=== PATIENT | female | born 1935 | race Caucasian/White ===

== ENCOUNTER → 2019-02-21 14:08 | Outpatient (CLI) | payer MEDICARE, OTHER, SELFPAY ==
--- NOTE | 2019-02-21 | DI.CT.S_ITS ---
PROCEDURE: CT HEAD/BRAIN WO CON INDICATIONS: POULTRY HANGER shunt status TECHNIQUE: Noncontrast 4.5 mm thick angled axial sections acquired from the foramen magnum to the vertex, with coronal and sagittal reformats. For radiation dose reduction, the following was used: automated exposure control, adjustment of mA and/or kV according to patient size. COMPARISON: [facility], , MRI ANGIOGRAM HEAD/NECK W/WO CONTRAST, 12/14/2004, 13:34. FINDINGS: Image quality: Excellent. CSF spaces: A right parietal approach ventriculostomy catheter is seen, with a traversing the midline and seen along the anterior aspect of the left lateral ventricle. The lateral ventricles and the 3rd ventricle are mildly prominent, yet not significantly disproportionate to the prominence of the sulci. Basal cisterns are patent. No extra-axial fluid collections. Brain: Focal volume loss is seen involving the left cerebellum. Focal low density is also seen involving the right frontal lobe anteriorly, as on series 2 image 20. No intracranial bleeds or masses. There is cerebral volume loss for age, with resultant ventricular and sulcal prominence. There are periventricular and deep white matter chronic small vessel ischemic changes. There is intracranial internal carotid artery atherosclerosis. Skull and face: Posterior craniectomy changes are seen. Calvarium and visualized facial bones appear intact, without suspicious lesions. Sinuses: Visualized sinuses and mastoids are clear. IMPRESSION: Right parietal approach ventriculostomy catheter, with the tip along the anterior aspect of the left lateral ventricle. The lateral ventricles and 3rd ventricle are prominent, yet not significantly disproportionate to the degree of sulcal prominence. Although hydrocephalus is possible, the appearance on the current study is felt unlikely to represent acute hydrocephalus. Please correlate with patient history. Posterior craniectomy change, with volume loss seen within the left cerebellum. Prior focal resection is suspected. There is focal low density seen involving the right frontal lobe anteriorly. Differential diagnosis includes a remote infarction or potentially an underlying mass. Correlation with prior outside images would be helpful. Dictated by: Hunter Laguna M.D. on 02/21/2019 at 13:58 Approved by: Hunter Laguna M.D. on 02/21/2019 at 14:05
== END ==
PROVIDERS: PCP Neurological Surgery; Visit Provider Internal Medicine
DX: R41.89 Other symptoms and signs involving cognitive functions and awareness (principal); Z98.2 Presence of cerebrospinal fluid drainage device; Z87.74 Personal history of (corrected) congenital malformations of heart and circulatory system
CPT/HCPCS: 70450

== ENCOUNTER → 2020-04-22 08:29 | Outpatient (CLI) | payer MEDICARE, OTHER, SELFPAY ==
[2020-04-22 09:25] LABS: Appearance Urine UA CLOUDY; Bilirubin Urine UA NEGATIVE (NEGATIVE); Color Urine UA YELLOW; Glucose Urine UA NEGATIVE (Negative); Ketones Urine UA NEGATIVE (NEGATIVE); Leukocyte Esterase Urine UA 3+ (NEGATIVE); Nitrite Urine UA NEGATIVE (Negative); Occult Blood Urine UA 3+ (Negative); Protein Urine UA 1+ (Negative); Urobilinogen Urine UA 0.2 E.U./dL (0.2)
[2020-04-22 09:31] LABS: Bacteria Urine Many (>30); Culture Indicated Urine Specimen Cultured; RBC Urine 10-30/HPF (0-5/HPF); Squamous Epithelial Cell Urine 0-1 /HPF (0-5/HPF); WBC Urine >100/HPF (0-5/HPF)
== END ==
PROVIDERS: PCP Internal Medicine; Referring Provider Internal Medicine; Visit Provider Internal Medicine
DX: N30.00 Acute cystitis without hematuria (principal)
CPT/HCPCS: 81001; 87077; 87086; 87186

== ENCOUNTER 2020-05-27 11:33 | Emergency (ER) | payer MEDICARE, OTHER, SELFPAY ==
[2020-05-27] VITALS (16 sets, daily range): BP systolic 134–162; BP diastolic 60–78; PULSE 60–70; RESP 11–18; TEMP 35.9; O2SAT 92–98
--- NOTE | 2020-05-27 11:45 | DI.CT.S_ITS ---
PROCEDURE: CT ABDOMEN PELVIS W CON INDICATIONS: Right lower quadrant abdominal pain TECHNIQUE: After the administration of oral and intravenous contrast, 5 mm thick sections acquired from the diaphragms to the symphysis. 5 mm thick coronal and sagittal reformats were performed. For radiation dose reduction, the following was used: automated exposure control, adjustment of mA and/or kV according to patient size. COMPARISON: None. FINDINGS: Image quality: Excellent. ABDOMEN: Lung bases: Mild bibasilar dependent change. Heart size is normal. Pacemaker. Solid organs: Liver is normal in size and enhancement. Gallbladder is unremarkable. Biliary system is non-dilated. Pancreas enhances normally. Spleen is normal in size and enhancement. No adrenal nodules. Kidneys are normal in size and enhancement, without hydronephrosis. Peritoneum and bowel: Stomach, small bowel, and colon loops are normal in caliber and wall thickness. No free fluid or air. A normal appendix is identified. There is sigmoid diverticulosis without evidence of diverticulitis. Nodes and vessels: No retroperitoneal or mesenteric adenopathy. Aorta and inferior vena cava are normal in caliber. Miscellaneous: No ventral hernias. WATER TRUCK DRIVER shunt catheter. PELVIS: Genitourinary: Mild diffuse bladder wall thickening. Miscellaneous: Small bilateral inguinal hernias containing fat. No inguinal adenopathy. Bones: No suspicious bony lesions. No vertebral body compression fractures. IMPRESSION: 1. No evidence acute appendicitis. 2. Mild diffuse bladder wall thickening. 3. Sigmoid diverticulosis without evidence of diverticulitis. Dictated by: Constantine Jeter M.D. on 05/27/2020 at 12:20 Approved by: Constantine Jeter M.D. on 05/27/2020 at 12:23
--- NOTE | 2020-05-27 11:45 | DI.RAD.S_ITS ---
PROCEDURE: XR CHEST 1V INDICATIONS: confusion TECHNIQUE: One view of the chest was acquired. COMPARISON: None. FINDINGS: Surgical changes and devices: Left pacemaker with right atrial and right ventricular leads. Right CONSTRUCTION PROJECT ADMINISTRATOR shunt coursing over the right chest. Lungs and pleura: Lungs are clear. No pleural effusions or pneumothorax. Mediastinum: Mediastinal contours appear normal. Heart size appears prominent. Bones and chest wall: No suspicious bony lesions. Overlying soft tissues appear unremarkable. IMPRESSION: No acute airspace opacity identified. Dictated by: Jose Ball M.D. on 05/27/2020 at 12:15 Approved by: Jose Ball M.D. on 05/27/2020 at 12:19
--- NOTE | 2020-05-27 11:45 | DI.CT.S_ITS ---
PROCEDURE: CT HEAD/BRAIN WO CON INDICATIONS: confusion hx avm TECHNIQUE: Noncontrast 4.5 mm thick angled axial sections acquired from the foramen magnum to the vertex, with coronal and sagittal reformats. For radiation dose reduction, the following was used: automated exposure control, adjustment of mA and/or kV according to patient size. COMPARISON: [facility], CT, CT HEAD/BRAIN WO CON, 02/21/2019, 14:15. FINDINGS: Image quality: Excellent. CSF spaces: Right posterior CLOCK MECHANIC shunt with the tip in the anterior horn of the left ventricle. Lateral ventricles are prominent as before. The 3rd and 4th ventricles are minimally prominent and are unchanged. Basal cisterns are patent. No extra-axial fluid collections. Ventricles are normal in size and shape. Brain: No midline shift. No intracranial masses or hemorrhage. Brasher-white matter interface is normal. Skull and face: Prior occipital craniotomy. Calvarium and visualized facial bones are intact, without suspicious lesions. Sinuses: Visualized sinuses and mastoids are clear. IMPRESSION: No acute intracranial abnormality. Stable mild ventriculomegaly. Right CLOCK MECHANIC shunt is unchanged in position. Dictated by: Jose Ball M.D. on 05/27/2020 at 12:44 Approved by: Jose Ball M.D. on 05/27/2020 at 12:48
[2020-05-27 11:53] LABS: Add Manual Diff / Slide Review NO; Basophils Absolute Auto 100 /uL (0-100); Basophils Percent Auto 1.2 % (0-2); Eosinophils Absolute Auto 200 /uL (0-450); Lymphocytes Absolute Auto 2000 /uL (1100-4500); Lymphocytes Percent Auto 34.8 % (25-40); Mean Corpuscular HGB Conc 34.3 % (30-36); Mean Corpuscular Hemoglobin 31.3 PG (26-34); Mean Corpuscular Volume 91.2 fL (80-100); Monocytes Absolute Auto 600 /uL (0-900); Monocytes Percent Auto 9.5 % (3-14); Neutrophils Absolute Auto 3000 /uL (1500-7000); Neutrophils Percent Auto 51.5 % (50-75); Platelet Count 233 X10^3/uL (150-400); Red Blood Cell Count 3.84 X10^6/uL (4.0-5.2); White Blood Cell Count 5.9 X10^3/uL (4.5-11.0)
--- NOTE | 2020-05-27 12:07 | PC.NURSE ---
Addendum entered by Christina Wills R.N. 05/27/20 12:15: Pt nauseated as well Original Note: Pt woke up with blurred vision and dizzy. Pt is not at baseline per . Pt LKW 1030 05/26/20. Pt is following commands
[2020-05-27 12:10] LABS: Alanine Aminotransferase 19 IU/L (<35); Albumin 3.9 g/dL (3.5-5.0); Alkaline Phosphatase 108 U/L (38-126); Aspartate Aminotransferase 27 IU/L (14-36); BUN Creatinine Ratio 26.6 (6-22); Bilirubin Total 0.6 mg/dL (0.2-1.3); Blood Urea Nitrogen 25 mg/dL (7-17); Carbon Dioxide 29 mmol/L (22-32); Chloride 101 mmol/L (98-107); Globulin 3.9 g/dL (1.7-4.1); Glucose 270 mg/dL (80-110); HEMOLYSIS 23 (0-50); Potassium 4.6 mmol/L (3.4-5.1); Sodium 137 mmol/L (137-145); Total Protein 7.8 g/dL (6.3-8.2)
[2020-05-27 12:22] LABS: Procalcitonin < 0.05 ng/mL (<0.5)
--- NOTE | 2020-05-27 12:38 | PC.NURSE ---
Pts IV infiltrated left AC. warm blankets and coban applied
[2020-05-27 12:45] LABS: Lactate (Lactic Acid) 1.7 mmol/L (0.7-2.1)
--- NOTE | 2020-05-27 12:54 | ED.NEUROSD ---
HPI - Neuro Symptoms/Deficit General Chief Complaint: Neuro Symptoms/Deficit Stated Complaint: Decreased LOC/ nausea Time Seen by Provider: 05/27/20 11:34 Source: patient Mode of arrival: EMS Limitations: altered mental status History of Present Illness HPI Narrative: Patient is an 84-year-old female with history of recurrent UTIs and cerebral AVMs presenting with decreased responsiveness. states that he went to wake her up at 9:00 a.m. this morning and she is very weak and lethargic. She had a UTI on 04/22/2020 Proteus mirabilis, which was resistant to fluoroquinolones Bactrim and Macrobid. He overall appears weak and is difficult to get history from. Most history is obtained from the Related Data Home Medications Medication Instructions Recorded Confirmed AMLODIPINE BESYLATE (#NORVASC) 5 mg PO QDAY #0 07/19/11 ASPIRIN (#ASPIRIN) 81 mg PO QDAY #0 07/19/11 [CALCIUM] #0 07/19/11 [LANTUS ] #0 07/19/11 [NOVOLOG INSULIN PUMP] #0 07/19/11 levothyroxine [Synthroid] 50 mcg PO QDAY #0 07/19/11 simvastatin 20 mg PO QDAY #0 07/19/11 Previous Rx's Medication Instructions Recorded HYDROCODONE/ACET 1 tab PO Q8H #30 12/01/11 (Hydrocodon-Acetaminophen 5-325) amoxicillin-pot clavulanate 875 mg PO BID #14 04/08/12 [Augmentin] amoxicillin-pot clavulanate 1 tab PO BID #14 tab 05/27/20 Allergies Allergy/AdvReac Type Severity Reaction Status Date / Time Sulfa (Sulfonamide Allergy Verified 05/27/20 11:44 Antibiotics) Review of Systems Review of Systems ROS Unobtainable: Unobtainable due to medical condition Patient History Medical History Acute UTI (Acute) AVM (arteriovenous malformation) (Acute) Social History Smoking Status: Unknown if ever smoked Smoking Status: Unknown if ever smoked alcohol intake frequency: holidays/special occasions only Substance Use Type: does not use Exam Initial Vital Signs Initial Vital Signs: Vital Signs Temperature 96.7 F L 05/27/20 11:40 Pulse Rate 60 05/27/20 11:40 Respiratory Rate 15 05/27/20 11:40 Blood Pressure 148/66 H 05/27/20 11:40 Pulse Oximetry 95 05/27/20 11:40 GENERAL: Alert confused elderly female open eyes to voice and in no acute distress. HEENT: Head atraumatic,EOMI, pupils reactive, face symmetric, moist mucous membranes CARDIOVASCULAR: Regular rate and rhythm without murmurs, rubs or gallops. RESPIRATORY: Breath sounds equal bilaterally, no wheezes rales or rhonchi. ABDOMEN: Soft, tender right lower side no guarding or rebound no distension normal bowel sounds EXTREMITIES: Normal range of motion, no clubbing or edema. Neurovascularly intact NEUROLOGICAL: Follows commands, chief inspector strength equal, confused, moves all extremities, unable to lift right leg says she is normally able to do so but she is able to move her toes. Left leg is also extremely weak but does move more. SKIN: Warm, dry, no laceration, no petechiae, no rashes or lesions. Scores GCS [place] coma scale eye opening: Spontaneous [place] coma scale verbal response: Sounds Jeannie coma scale motor response: Obey commands [place] coma scale total score: 12 Course Orders Ordered: ED Orders 05/27/20 11:10 Complete Blood Count AUTO DIFF Stat Comprehensive Metabolic Panel Stat Procalcitonin Stat 05/27/20 11:45 CT abdomen pelvis w con Stat CT head/brain wo con Stat XR chest 1V Stat 05/27/20 12:10 Lactate (Lactic Acid) Stat 05/27/20 12:20 Blood Culture Stat 05/27/20 13:50 Urine Culture Stat Urine Microscopic Stat Discontinued Medications Ceftriaxone Sodium/Dextrose (Rocephin) 1 gm in 50 mls @ 100 mls/hr IV NOW ONE Stop: 05/27/20 14:26 Last Infusion: 05/27/20 14:47 Dose: 0 mls/hr Documented by: Admin: 05/27/20 14:14 Dose: 100 mls/hr Documented by: HEATHER Vital Signs Vital signs: Vital Signs - 8 hr 05/27/20 11:40 05/27/20 11:42 05/27/20 11:45 Temperature 96.7 F L Pulse Rate 60 60 60 Respiratory Rate 15 16 16 Blood Pressure 148/66 H 148/66 H Pulse Oximetry 95 92 92 05/27/20 12:00 05/27/20 12:15 05/27/20 13:12 Temperature Pulse Rate 60 60 Respiratory Rate 15 14 Blood Pressure Pulse Oximetry 92 94 97 05/27/20 13:15 05/27/20 13:23 05/27/20 13:30 Temperature Pulse Rate 66 63 64 Respiratory Rate 15 16 18 Blood Pressure 145/71 H 162/78 H Pulse Oximetry 96 97 97 05/27/20 13:45 05/27/20 14:00 05/27/20 14:01 Temperature Pulse Rate 68 60 60 Respiratory Rate 18 11 L 12 Blood Pressure 134/60 Pulse Oximetry 95 95 95 05/27/20 14:15 05/27/20 14:30 05/27/20 14:45 Temperature Pulse Rate 61 67 70 Respiratory Rate 14 13 13 Blood Pressure 142/62 H Pulse Oximetry 96 98 98 05/27/20 15:00 Temperature Pulse Rate 66 Respiratory Rate 11 L Blood Pressure 146/64 H Pulse Oximetry 96 MDM - Neuro Symptoms/Deficit Lab Data Attestation: I reviewed the patient's lab results. Result diagrams: 05/27/20 11:10 05/27/20 11:10 Labs: Lab Results 05/27/20 05/27/20 05/27/20 Range/Units 11:10 11:10 11:10 WBC 5.9 (4.5-11.0) X10^3/uL RBC 3.84 L (4.0-5.2) X10^6/uL Hgb 12.0 (12.0-16.0) g/dL Hct 35.0 L (36-46) % MCV 91.2 (80-100) fL MCH 31.3 (26-34) PG MCHC 34.3 (30-36) % RDW 13.0 (11.6-14.8) % Plt Count 233 (150-400) X10^3/uL Neut % (Auto) 51.5 (50-75) % Lymph % (Auto) 34.8 (25-40) % [place] % (Auto) 9.5 (3-14) % Eos % (Auto) 3.0 (2-4) % Baso % (Auto) 1.2 (0-2) % Neut # (Auto) 3000 (3684-8679) /uL Lymph # (Auto) 2000 (1226-3500) /uL [place] # (Auto) 600 (0-900) /uL Eos # (Auto) 200 (0-450) /uL Baso # (Auto) 100 (0-100) /uL Sodium 137 (137-145) mmol/L Potassium 4.6 (3.4-5.1) mmol/L Chloride 101 (98-107) mmol/L Carbon Dioxide 29 (22-32) mmol/L BUN 25 H (7-17) mg/dL Creatinine 0.94 (0.52-1.04) mg/dL Estimated GFR 57.0 L (>60) mL/min BUN/Creatinine Ratio 26.6 H (6-22) Glucose 270 H (80-110) mg/dL Lactate (0.7-2.1) mmol/L Calcium 10.0 (8.4-10.2) mg/dL Total Bilirubin 0.6 (0.2-1.3) mg/dL AST 27 (14-36) IU/L ALT 19 (<35) IU/L Alkaline Phosphatase 108 (38-126) U/L Total Protein 7.8 (6.3-8.2) g/dL Albumin 3.9 (3.5-5.0) g/dL Globulin 3.9 (1.7-4.1) g/dL Albumin/Globulin Ratio 1.0 (1.0-2.8) Procalcitonin < 0.05 (<0.5) ng/mL Urine RBC (0-5/HPF) Urine WBC (0-5/HPF) Ur Squamous Epith Cells (0-5/HPF) Urine Bacteria (None) Ur Culture Indicated? 05/27/20 05/27/20 Range/Units 12:10 13:50 WBC (4.5-11.0) X10^3/uL RBC (4.0-5.2) X10^6/uL Hgb (12.0-16.0) g/dL Hct (36-46) % MCV (80-100) fL MCH (26-34) PG MCHC (30-36) % RDW (11.6-14.8) % Plt Count (150-400) X10^3/uL Neut % (Auto) (50-75) % Lymph % (Auto) (25-40) % [place] % (Auto) (3-14) % Eos % (Auto) (2-4) % Baso % (Auto) (0-2) % Neut # (Auto) (0669-2296) /uL Lymph # (Auto) (4848-7084) /uL Redwood # (Auto) (0-900) /uL Eos # (Auto) (0-450) /uL Baso # (Auto) (0-100) /uL Sodium (137-145) mmol/L Potassium (3.4-5.1) mmol/L Chloride (98-107) mmol/L Carbon Dioxide (22-32) mmol/L BUN (7-17) mg/dL Creatinine (0.52-1.04) mg/dL Estimated GFR (>60) mL/min BUN/Creatinine Ratio (6-22) Glucose (80-110) mg/dL Lactate 1.7 (0.7-2.1) mmol/L Calcium (8.4-10.2) mg/dL Total Bilirubin (0.2-1.3) mg/dL AST (14-36) IU/L ALT (<35) IU/L Alkaline Phosphatase (38-126) U/L Total Protein (6.3-8.2) g/dL Albumin (3.5-5.0) g/dL Globulin (1.7-4.1) g/dL Albumin/Globulin Ratio (1.0-2.8) Procalcitonin (<0.5) ng/mL Urine RBC 5-10/hpf H (0-5/HPF) Urine WBC >100/hpf H (0-5/HPF) Ur Squamous Epith Cells 0-1 /hpf (0-5/HPF) Urine Bacteria Many (>30) H (None) Ur Culture Indicated? Specimen cultured Urine Dip Bedside Urine Glucose 500 mg/dl Bedside Urine Bilirubin - Negative Bedside Urine Ketone ++ 40 Urine Specific [place] 1.015 Bedside Urine Occult Blood + Bedside Urine pH 6.0 Bedside Urine Protein +/- 15 Bedside Urine Urobilinogen - Negative Bedside Urine Nitrite + Positive Bedside Urine Leukocytes ++ [address] scan - head: Radiologist's Impression: PROCEDURE: CT HEAD/BRAIN WO CON INDICATIONS: confusion hx avm TECHNIQUE: Noncontrast 4.5 mm thick angled axial sections acquired from the foramen magnum to the vertex, with coronal and sagittal reformats. For radiation dose reduction, the following was used: automated exposure control, adjustment of mA and/or kV according to patient size. COMPARISON: [facility], CT, CT HEAD/BRAIN WO CON, 02/21/2019, 14:15. FINDINGS: Image quality: Excellent. CSF spaces: Right posterior COMPUTER SYSTEMS AUDITOR shunt with the tip in the anterior horn of the left ventricle. Lateral ventricles are prominent as before. The 3rd and 4th ventricles are minimally prominent and are unchanged. Basal cisterns are patent. No extra-axial fluid collections. Ventricles are normal in size and shape. Brain: No midline shift. No intracranial masses or hemorrhage. Brasher-white matter interface is normal. Skull and face: Prior occipital craniotomy. Calvarium and visualized facial bones are intact, without suspicious lesions. Sinuses: Visualized sinuses and mastoids are clear. IMPRESSION: No acute intracranial abnormality. Stable mild ventriculomegaly. Right COMPUTER SYSTEMS AUDITOR shunt is unchanged in position. Dictated by: Jose Ball M.D. on 05/27/2020 at 12:44 CT scan - abdomen/pelvis: Radiologist's Impression: PROCEDURE: CT ABDOMEN PELVIS W CON INDICATIONS: Right lower quadrant abdominal pain TECHNIQUE: After the administration of oral and intravenous contrast, 5 mm thick sections acquired from the diaphragms to the symphysis. 5 mm thick coronal and sagittal reformats were performed. For radiation dose reduction, the following was used: automated exposure control, adjustment of mA and/or kV according to patient size. COMPARISON: None. FINDINGS: Image quality: Excellent. ABDOMEN: Lung bases: Mild bibasilar dependent change. Heart size is normal. Pacemaker. Solid organs: Liver is normal in size and enhancement. Gallbladder is unremarkable. Biliary system is non-dilated. Pancreas enhances normally. Spleen is normal in size and enhancement. No adrenal nodules. Kidneys are normal in size and enhancement, without hydronephrosis. Peritoneum and bowel: Stomach, small bowel, and colon loops are normal in caliber and wall thickness. No free fluid or air. A normal appendix is identified. There is sigmoid diverticulosis without evidence of diverticulitis. Nodes and vessels: No retroperitoneal or mesenteric adenopathy. Aorta and inferior vena cava are normal in caliber. Miscellaneous: No ventral hernias. COMPUTER SYSTEMS AUDITOR shunt catheter. PELVIS: Genitourinary: Mild diffuse bladder wall thickening. Miscellaneous: Small bilateral inguinal hernias containing fat. No inguinal adenopathy. Bones: No suspicious bony lesions. No vertebral body compression fractures. IMPRESSION: 1. No evidence acute appendicitis. 2. Mild diffuse bladder wall thickening. 3. Sigmoid diverticulosis without evidence of diverticulitis. Dictated by: Constantine Jeter M.D. on 05/27/2020 at 12:20 Approved by: Constantine Jeter M.D. on 05/27/2020 at 12:23 Chest x-ray: Radiologist's Impression: PROCEDURE: XR CHEST 1V INDICATIONS: confusion TECHNIQUE: One view of the chest was acquired. COMPARISON: None. FINDINGS: Surgical changes and devices: Left pacemaker with right atrial and right ventricular leads. Right COMPUTER SYSTEMS AUDITOR shunt coursing over the right chest. Lungs and pleura: Lungs are clear. No pleural effusions or pneumothorax. Mediastinum: Mediastinal contours appear normal. Heart size appears prominent. Bones and chest wall: No suspicious bony lesions. Overlying soft tissues appear unremarkable. IMPRESSION: No acute airspace opacity identified. Dictated by: Jose Ball M.D. on 05/27/2020 at 12:15 Approved by: Jose Ball M.D. on 05/27/2020 at 12:19 [facility] Narrative Medical decision making narrative: Patient's mental status improves in the ED with just IV fluids. She does not appear septic. She has no leukocytosis she is afebrile procalcitonin lactic acid are within normal limits. UTI culture results reviewed from last month. She is given 1 dose of Rocephin in the ED and started on Augmentin. I believe she was on Augmentin previously based on her med rec, but cannot be certain. The patient is able to respond now she overall is feeling much better. feels comfortable taking her home. Discharge Plan Departure Patient Disposition: Home Clinical Impression: Acute UTI Discharge Date/Time: 05/27/20 15:29 Instructions: DI for Urinary Tract Infection (UTI) Activity Restrictions/Additional Instructions: *You have been diagnosed with UTI *What to do: At this time recommend antibiotic treatment your given prescription based on your previous urine *Continue to take medications as directed Augmentin 875 mg twice a day for 7 days *Follow up with your primary care provider in 2-3 days *Return to ER if you should have increased confusion, burning in urination, fever or any new, worsening or concerning symptoms Prescriptions: New amoxicillin-pot clavulanate 875-125 mg tablet 1 tab PO BID Qty: 14 RF: 0 No Action ASPIRIN (#ASPIRIN) 81 mg PO QDAY Qty: 0 RF: 0 levothyroxine [Synthroid] 50 MCG tablet 50 mcg PO QDAY Qty: 0 RF: 0 [CALCIUM] Qty: 0 RF: 0 [NOVOLOG INSULIN PUMP] Qty: 0 RF: 0 AMLODIPINE BESYLATE (#NORVASC) 5 mg PO QDAY Qty: 0 RF: 0 simvastatin 20 MG tablet 20 mg PO QDAY Qty: 0 RF: 0 [LANTUS ] Qty: 0 RF: 0 HYDROCODONE/ACET (Hydrocodon-Acetaminophen 5-325) 1 tab PO Q8H Qty: 30 RF: 0 amoxicillin-pot clavulanate [Augmentin] 875 MG/125 MG tablet 875 mg PO BID Qty: 14 RF: 0 Referrals: Joanne Angelo [Primary Care Provider] -
[2020-05-27] MEDS: CEFTRIAXONE 1 GM/50 ML FROZ.PIGGY IV (14:14)
[2020-05-27 14:15] LABS: Bacteria Urine Many (>30); Culture Indicated Urine Specimen Cultured; RBC Urine 5-10/HPF (0-5/HPF); Squamous Epithelial Cell Urine 0-1 /HPF (0-5/HPF); WBC Urine >100/HPF (0-5/HPF)
== END 2020-05-27 15:29 | disposition home or self-care (01) ==
PROVIDERS: Emergency Provider Emergency Medicine; PCP Internal Medicine
DX: N39.0 Urinary tract infection, site not specified (principal); R41.0 Disorientation, unspecified; R10.31 Right lower quadrant pain
CPT/HCPCS: 36415; 70450; 71045; 74177; 80053; 81003; 81015; 83605; 84145; 85025; 87040; 87077; 87086; 87186; 96365; 99284

== ENCOUNTER → 2020-06-09 10:06 | Outpatient (CLI) | payer MEDICARE, OTHER, SELFPAY ==
[2020-06-09 11:12] LABS: Appearance Urine UA CLEAR; Bilirubin Urine UA NEGATIVE (NEGATIVE); Color Urine UA YELLOW; Glucose Urine UA NEGATIVE (Negative); Ketones Urine UA NEGATIVE (NEGATIVE); Leukocyte Esterase Urine UA TRACE (NEGATIVE); Nitrite Urine UA NEGATIVE (Negative); Occult Blood Urine UA NEGATIVE (Negative); Protein Urine UA NEGATIVE (Negative); Urobilinogen Urine UA 0.2 E.U./dL (0.2)
[2020-06-09 12:18] LABS: Bacteria Urine Few (2-10); Culture Indicated Urine Specimen Cultured; RBC Urine 0-1/HPF (0-5/HPF); Squamous Epithelial Cell Urine 0-1 /HPF (0-5/HPF); WBC Urine 5-10/HPF (0-5/HPF)
== END ==
PROVIDERS: PCP Internal Medicine; Referring Provider Internal Medicine; Visit Provider Internal Medicine
DX: N39.0 Urinary tract infection, site not specified (principal)
CPT/HCPCS: 81001; 87077; 87086; 87186

== ENCOUNTER → 2020-08-18 09:53 | Outpatient (CLI) | payer MEDICARE, OTHER, SELFPAY | PROVIDERS: PCP Internal Medicine; Referring Provider Internal Medicine; Visit Provider Internal Medicine | DX: Z12.31 Encounter for screening mammogram for malignant neoplasm of breast (principal); Z53.20 Procedure and treatment not carried out because of patient's decision for unspecified reasons ==

== ENCOUNTER → 2021-04-05 08:43 | Outpatient (CLI) | payer MEDICARE, OTHER, SELFPAY ==
[2021-04-05 08:54] LABS: RBC Urine None Seen (0-5/HPF)
[2021-04-05 10:16] LABS: Appearance Urine UA CLOUDY; Bilirubin Urine UA NEGATIVE (NEGATIVE); Color Urine UA YELLOW; Glucose Urine UA NEGATIVE (Negative); Ketones Urine UA NEGATIVE (NEGATIVE); Leukocyte Esterase Urine UA 3+ (NEGATIVE); Nitrite Urine UA NEGATIVE (Negative); Occult Blood Urine UA 2+ (Negative); Protein Urine UA NEGATIVE (Negative); Specific Gravity Urine UA <=1.005 (1.000-1.035); Urobilinogen Urine UA 0.2 E.U./dL (0.2)
[2021-04-05 10:30] LABS: pH Urine UA 6.5 (4.5-8.0)
[2021-04-05 10:53] LABS: Squamous Epithelial Cell Urine 1-5 /HPF (0-5/HPF); WBC Urine >100/HPF (0-5/HPF)
[2021-04-05 10:54] LABS: Bacteria Urine Moderate (10-30); Culture Indicated Urine Specimen Cultured
== END ==
PROVIDERS: PCP Internal Medicine; Referring Provider Internal Medicine; Visit Provider Internal Medicine
DX: N36.0 Urethral fistula (principal)
CPT/HCPCS: 81001; 87077; 87086; 87186

== ENCOUNTER → 2021-06-15 09:53 | Outpatient (CLI) | payer MEDICARE, OTHER, SELFPAY ==
--- NOTE | 2021-06-15 | DI.RAD.S_ITS ---
PROCEDURE: XR DEXA AXIAL SKELETON INDICATIONS: Localized osteoporosis [[place]] COMPARISON: None. FINDINGS: This blank DEXA report has been sent in error by the PACS system. The correct and complete report will be forthcoming in 1-2 days. Thank you for your patience and understanding. Dictated by: Yandy Schneider MD, PhD on 06/16/2021 at 10:04 Approved by: Yandy Schneider MD, PhD on 06/16/2021 at 10:04
== END ==
PROVIDERS: PCP Internal Medicine; Referring Provider Internal Medicine; Visit Provider Internal Medicine
DX: M81.6 Localized osteoporosis [Lequesne] (principal); M81.0 Age-related osteoporosis without current pathological fracture
CPT/HCPCS: 77080

== ENCOUNTER → 2021-10-04 09:31 | Outpatient (CLI) | payer MEDICARE, OTHER, SELFPAY ==
[2021-10-04 11:41] LABS: Hemoglobin A1C% w Est Avg Glu 7.1 % (4.0-6.0)
== END ==
PROVIDERS: PCP Internal Medicine; Referring Provider Family Medicine; Visit Provider Family Medicine
DX: E10.649 Type 1 diabetes mellitus with hypoglycemia without coma (principal)
CPT/HCPCS: 36415; 83036

== ENCOUNTER → 2021-11-04 08:25 | Outpatient (CLI) | payer MEDICARE, OTHER, SELFPAY ==
[2021-11-04 10:44] LABS: Appearance Urine UA CLOUDY; Bilirubin Urine UA NEGATIVE (NEGATIVE); Color Urine UA YELLOW; Glucose Urine UA NEGATIVE (Negative); Ketones Urine UA TRACE (NEGATIVE); Leukocyte Esterase Urine UA 2+ (NEGATIVE); Nitrite Urine UA POSITIVE (Negative); Occult Blood Urine UA 3+ (Negative); Protein Urine UA TRACE (Negative); Urobilinogen Urine UA 0.2 E.U./dL (0.2)
[2021-11-04 10:45] LABS: Bacteria Urine Many (>30); Culture Indicated Urine Specimen Cultured; RBC Urine 5-10/HPF (0-5/HPF); Squamous Epithelial Cell Urine 1-5 /HPF (0-5/HPF); WBC Urine >100/HPF (0-5/HPF)
== END ==
PROVIDERS: PCP Internal Medicine; Referring Provider Internal Medicine; Visit Provider Internal Medicine
DX: N39.0 Urinary tract infection, site not specified (principal)
CPT/HCPCS: 81001; 87077; 87086; 87186

== ENCOUNTER → 2022-01-09 16:35 | Outpatient (CLI) | payer MEDICARE, OTHER, SELFPAY ==
[2022-01-09 17:17] LABS: Bacteria Urine Many (>30); Culture Indicated Urine Specimen Cultured; RBC Urine None Seen (0-5/HPF); WBC Urine 5-10/HPF (0-5/HPF)
== END ==
PROVIDERS: PCP Internal Medicine; Referring Provider Internal Medicine; Visit Provider Internal Medicine
DX: R30.0 Dysuria (principal)
CPT/HCPCS: 81015; 87077; 87086; 87186

== ENCOUNTER → 2022-05-02 10:14 | Outpatient (CLI) | payer MEDICARE, OTHER, SELFPAY ==
[2022-05-02 11:06] LABS: Appearance Urine UA CLOUDY; Bilirubin Urine UA NEGATIVE (NEGATIVE); Color Urine UA YELLOW; Glucose Urine UA NEGATIVE (Negative); Ketones Urine UA NEGATIVE (NEGATIVE); Leukocyte Esterase Urine UA 3+ (NEGATIVE); Nitrite Urine UA POSITIVE (Negative); Occult Blood Urine UA 2+ (Negative); Protein Urine UA TRACE (Negative); Specific Gravity Urine UA <=1.005 (1.000-1.035); Urobilinogen Urine UA 0.2 E.U./dL (0.2)
[2022-05-02 11:13] LABS: RBC Urine 1-5/HPF (0-5/HPF)
[2022-05-02 11:14] LABS: Amorphous Sediment Urine 1+; Bacteria Urine Many (>30); Culture Indicated Urine Specimen Cultured; WBC Urine 5-10/HPF (0-5/HPF)
== END ==
PROVIDERS: Internal Medicine; PCP Internal Medicine; Referring Provider Internal Medicine; Visit Provider Internal Medicine
DX: R30.0 Dysuria (principal)
CPT/HCPCS: 81001; 87077; 87086; 87186

== ENCOUNTER 2022-05-17 10:50 | Emergency (ER) | payer MEDICARE, OTHER, SELFPAY ==
[2022-05-17] VITALS (7 sets, daily range): BP systolic 148–189; BP diastolic 73–83; PULSE 60–80; RESP 13–20; TEMP 37; O2SAT 95–98; BMI 25.2
[2022-05-17 11:17] LABS: Add Manual Diff / Slide Review NO; Basophils Absolute Auto 100 /uL (0-100); Eosinophils Absolute Auto 200 /uL (0-450); Eosinophils Percent Auto 3.1 % (2-4); Hematocrit 37.4 % (36-46); Hemoglobin 12.9 g/dL (12.0-16.0); Lymphocytes Absolute Auto 3500 /uL (1100-4500); Lymphocytes Percent Auto 43.4 % (25-40); Mean Corpuscular HGB Conc 34.4 % (30-36); Mean Corpuscular Hemoglobin 31.3 PG (26-34); Mean Corpuscular Volume 90.8 fL (80-100); Monocytes Absolute Auto 700 /uL (0-900); Monocytes Percent Auto 9.1 % (3-14); Neutrophils Absolute Auto 3500 /uL (1500-7000); Neutrophils Percent Auto 43.4 % (50-75); Platelet Count 279 X10^3/uL (150-400); Red Blood Cell Count 4.12 X10^6/uL (4.0-5.2); Red Cell Distribution Width 13.4 % (11.6-14.8)
[2022-05-17 11:29] LABS: Prothrombin Time 11.9 SECONDS (10.1-12.7)
--- NOTE | 2022-05-17 11:30 | ED_ITS ---
HPI - Abdominal Pain General Chief Complaint: Abdominal Pain Stated Complaint: Thinks kidney stones Time Seen by Provider: 05/17/22 11:30 Source: patient Mode of arrival: Wheelchair Limitations: no limitations History of Present Illness HPI narrative: This is a 86-year-old female history of stroke in 2011 with significant balance issues and short-term memory loss which has been worsening over time, hypertension, dyslipidemia insulin-dependent diabetes for 40 years and recent Enterobacter cloacae UTI. Patient presents with complaint of abdominal pain that had sudden onset. Patient's states that they came over the ramus very and patient was doing fine at 8:00 a.m. this morning he states he goes into the grocery store as well she stays in the car and he noted she started having pain which lasted for about 2 hours that was persistent, constant lower abdominal no radiation was described. Patient's pain has since resolved. No recent fevers or chills. No nausea or vomiting recently. No chest pain or shortness of breath. Patient has been having small regular bowel movements every other day which is typical. No black or bloody stools. She was recently treated for a bladder infection with Cipro which she completed yesterday and has had some persistent dysuria and has chronic urinary incontinence. Patient did not describe any back or flank pain. Patient states her pain has resolved. She contributes minimally to the conversation majority from . She has had a prior pacemaker in place. She is on aspirin, atorvastatin, levothyroxine, insulin and sees primary care Dr. Leia Angelo through [facility]. Related Data Home Medications Medication Instructions Recorded Confirmed AMLODIPINE BESYLATE (#NORVASC) 5 mg PO QDAY ##0 07/19/11 ASPIRIN (#ASPIRIN) 81 mg PO QDAY ##0 07/19/11 [CALCIUM] ##0 07/19/11 [LANTUS ] ##0 07/19/11 [NOVOLOG INSULIN PUMP] ##0 07/19/11 levothyroxine 50 mcg tablet 50 mcg PO QDAY ##0 07/19/11 (Synthroid) simvastatin 20 mg tablet 20 mg PO QDAY ##0 07/19/11 Previous Rx's Medication Instructions Recorded HYDROCODONE/ACET 1 tab PO Q8H ##30 12/01/11 (Hydrocodon-Acetaminophen 5-325) amoxicillin 875 mg-potassium 875 mg PO BID ##14 04/08/12 clavulanate 125 mg tablet (Augmentin) amoxicillin 875 mg-potassium 1 tab PO BID #14 tabs 05/27/20 clavulanate 125 mg tablet levofloxacin 750 mg tablet 750 mg PO DAILY 7 days #7 tabs 05/17/22 Allergies Allergy/AdvReac Type Severity Reaction Status Date / Time Sulfa (Sulfonamide Allergy Verified 05/17/22 10:58 Antibiotics) Review of Systems Review of Systems ROS Unobtainable: All systems reviewed & are unremarkable except as noted in HPI and below Patient History Medical History (Updated 05/17/22 @ 12:39 by Floridalma Fenton DO) Acute UTI AVM (arteriovenous malformation) Social History Smoking Status: Unknown if ever smoked Smoking Status: Unknown if ever smoked alcohol intake frequency: holidays/special occasions only Substance Use Type: does not use Exam Narrative Exam Narrative: GENERAL: Alert and oriented x three, elderly female in mild distress HEENT: Head normocephalic, atraumatic, EOMI, pupils reactive, face symmetric, moist mucous membranes NECK: Supple, full range of motion CARDIOVASCULAR: Regular rate and rhythm without murmurs, rubs or gallops. RESPIRATORY: Breath sounds equal bilaterally, no wheezes rales or rhonchi. ABDOMEN: Soft, positive for RLQ tenderness, normoactive bowel sounds all 4 quadrants. No guarding or rebound, rigidity, no mass : No CVA tenderness EXTREMITIES: Normal range of motion, no clubbing or edema. Neurovascularly intact NEUROLOGICAL: Cranial nerves II through XII grossly intact. Moving all extremities SKIN: Warm, dry, no petechiae, no rashes or lesions. Initial Vital Signs Initial Vital Signs: Vital Signs Temperature 98.6 F 05/17/22 10:52 Pulse Rate 80 05/17/22 10:52 Respiratory Rate 17 05/17/22 10:52 Blood Pressure 189/83 H 05/17/22 10:52 Pulse Oximetry 95 05/17/22 10:52 Oxygen Delivery Method 05/17/22 10:52 Course Orders Ordered: ED Orders 05/17/22 11:05 Complete Blood Count AUTO DIFF Stat Comprehensive Metabolic Panel Stat Lipase Stat Partial Thromboplastin Time Stat Prothrombin Time INR Stat 05/17/22 11:18 EKG-12 Lead Stat 05/17/22 11:32 Urinalysis and Microscopic Stat Urine Culture Stat 05/17/22 11:54 CT abdomen pelvis w con Stat Vital Signs Vital signs: Vital Signs - 8 hr 05/17/22 11:30 05/17/22 11:30 05/17/22 12:09 Pulse Rate 70 65 Respiratory Rate 20 Blood Pressure 179/73 H Pulse Oximetry 96 96 05/17/22 12:30 05/17/22 13:00 Pulse Rate 61 60 Respiratory Rate 17 13 Blood Pressure 148/75 H Pulse Oximetry 96 98 MDM - Abdominal Pain Lab Data Result diagrams: 05/17/22 11:05 05/17/22 11:05 Labs: Lab Results 05/17/22 05/17/22 05/17/22 Range/Units 11:05 11:05 11:05 WBC 8.0 (4.5-11.0) X10^3/uL RBC 4.12 (4.0-5.2) X10^6/uL Hgb 12.9 (12.0-16.0) g/dL Hct 37.4 (36-46) % MCV 90.8 (80-100) fL MCH 31.3 (26-34) PG MCHC 34.4 (30-36) % RDW 13.4 (11.6-14.8) % Plt Count 279 (150-400) X10^3/uL Neut % (Auto) 43.4 L (50-75) % Lymph % (Auto) 43.4 H (25-40) % [place] % (Auto) 9.1 (3-14) % Eos % (Auto) 3.1 (2-4) % Baso % (Auto) 1.0 (0-2) % Neut # (Auto) 3500 (3261-5955) /uL Lymph # (Auto) 3500 (2050-2134) /uL [place] # (Auto) 700 (0-900) /uL Eos # (Auto) 200 (0-450) /uL Baso # (Auto) 100 (0-100) /uL PT 11.9 (10.1-12.7) SECONDS INR 1.0 (0.9-1.3) APTT 30 (26-36) SECONDS Sodium 138 (137-145) mmol/L Potassium 4.2 (3.4-5.1) mmol/L Chloride 103 (98-107) mmol/L Carbon Dioxide 30 (22-32) mmol/L BUN 22 H (7-17) mg/dL Creatinine 0.93 (0.52-1.04) mg/dL Estimated GFR > 60 (>60) mL/min BUN/Creatinine Ratio 23.7 H (6-22) Glucose 114 H (80-110) mg/dL Calcium 10.0 (8.4-10.2) mg/dL Total Bilirubin 0.5 (0.2-1.3) mg/dL AST 31 (14-36) IU/L ALT 23 (<35) IU/L Alkaline Phosphatase 117 (38-126) U/L Total Protein 8.7 H (6.3-8.2) g/dL Albumin 4.4 (3.5-5.0) g/dL Globulin 4.3 H (1.7-4.1) g/dL Albumin/Globulin Ratio 1.0 (1.0-2.8) Lipase 88 (23-300) U/L Urine Color Urine Appearance Urine pH (4.5-8.0) Ur Specific [place] (1.000-1.035) Urine Protein (Negative) Urine Glucose (UA) (Negative) g/dL Urine Ketones (NEGATIVE) Urine Occult Blood (Negative) Urine Nitrate (Negative) Urine Bilirubin (NEGATIVE) Urine Urobilinogen (0.2) E.U./dL Ur Leukocyte Esterase (NEGATIVE) Urine RBC (0-5/HPF) Urine WBC (0-5/HPF) Amorphous Sediment Urine Bacteria (None) Ur Culture Indicated? 05/17/22 Range/Units 11:32 WBC (4.5-11.0) X10^3/uL RBC (4.0-5.2) X10^6/uL Hgb (12.0-16.0) g/dL Hct (36-46) % MCV (80-100) fL MCH (26-34) PG MCHC (30-36) % RDW (11.6-14.8) % Plt Count (150-400) X10^3/uL Neut % (Auto) (50-75) % Lymph % (Auto) (25-40) % [place] % (Auto) (3-14) % Eos % (Auto) (2-4) % Baso % (Auto) (0-2) % Neut # (Auto) (6156-1290) /uL Lymph # (Auto) (9682-7951) /uL [place] # (Auto) (0-900) /uL Eos # (Auto) (0-450) /uL Baso # (Auto) (0-100) /uL PT (10.1-12.7) SECONDS INR (0.9-1.3) APTT (26-36) SECONDS Sodium (137-145) mmol/L Potassium (3.4-5.1) mmol/L Chloride (98-107) mmol/L Carbon Dioxide (22-32) mmol/L BUN (7-17) mg/dL Creatinine (0.52-1.04) mg/dL Estimated GFR (>60) mL/min BUN/Creatinine Ratio (6-22) Glucose (80-110) mg/dL Calcium (8.4-10.2) mg/dL Total Bilirubin (0.2-1.3) mg/dL AST (14-36) IU/L ALT (<35) IU/L Alkaline Phosphatase (38-126) U/L Total Protein (6.3-8.2) g/dL Albumin (3.5-5.0) g/dL Globulin (1.7-4.1) g/dL Albumin/Globulin Ratio (1.0-2.8) Lipase (23-300) U/L Urine Color Yellow Urine Appearance Clear Urine pH 7.0 (4.5-8.0) Ur Specific [place] 1.010 (1.000-1.035) Urine Protein Negative (Negative) Urine Glucose (UA) Negative (Negative) g/dL Urine Ketones Negative (NEGATIVE) Urine Occult Blood 3+ H (Negative) Urine Nitrate Negative (Negative) Urine Bilirubin Negative (NEGATIVE) Urine Urobilinogen 0.2 (0.2) E.U./dL Ur Leukocyte Esterase Trace H (NEGATIVE) Urine RBC 10-30/hpf H (0-5/HPF) Urine WBC 5-10/hpf H (0-5/HPF) Amorphous Sediment 1+ Urine Bacteria Moderate (10-30) H (None) Ur Culture Indicated? Specimen cultured Imaging Data CT scan - abdomen/pelvis: Radiologist's Impression: Close Abdomen/Pelvis CT (Signed) Marlyn Tineo - 05/17/22 Launch?Image [address] [address] [address] Scan Report Signed Patient: Sofia Strickland MR#: [id number] : 1935 Acct:[id number] Age/Sex: 86 / F Date of Service: 05/17/22 Loc: ED Accession Number: [id number] ?? Procedure: CT abdomen pelvis w con Ordering Provider: Floridalma Fenton D.O. PROCEDURE:? CT ABDOMEN PELVIS W CON ? INDICATIONS:? RLQ pain, ? TECHNIQUE:? After the administration of intravenous contrast, axial sections acquired from the lung bases to the pubic symphysis.? Coronal and sagittal reformats were performed.? For radiation dose reduction, the following was used:? automated exposure control, adjustment of mA and/or kV according to patient size.? ? COMPARISON:? [facility], CT, CT ABDOMEN PELVIS W CON, 05/27/2020, 13:01. ? FINDINGS:? Image quality:? Excellent.? ? Lung bases:? Mild interstitial pulmonary opacity at the bilateral lung bases, as before. Heart:? No significant findings. ? ABDOMEN: Liver:? Unremarkable.? ? Gallbladder:? Gallbladder is contracted, militating against cholecystitis.? ? Biliary ducts:? Unremarkable.? ? Pancreas:? Unremarkable.? ? Spleen:? Unremarkable.? ? Adrenal Glands:? Unremarkable.? ? Kidneys and Ureters:? Unremarkable.? ? ? Stomach and Bowel:? Small hiatal hernia.? Mild thickening of the distal esophagus.? Stomach and small bowel are within normal limits.? There is moderate fecal distention of the rectum which demonstrates mild surrounding fat stranding.? Remainder of the colon is normal in caliber.? Normal appendix. Peritoneum:? No abnormal intraperitoneal fluid.? No free air.? 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 ? Ventral Wall: ? No hernias.? Abdominal Nodes:? No retroperitoneal or mesenteric adenopathy by size criteria.? Vessels:? Aorta and inferior vena cava are normal in size.? ? PELVIS: Pelvic Organs:? Calcification within the right aspect of the uterus, consistent with a fibroid.? Bladder:? Mild thickening of the urinary bladder which demonstrates mild surrounding fat stranding. Pelvic Nodes: No enlarged lymph nodes.? Miscellaneous: No hernias are seen. ? ? ? Bones:? Unremarkable.? IMPRESSION:? 1. Proctitis. 2. Normal appendix. 3. Mild chronic interstitial lung disease. 4. Small hiatal hernia associated with thickening of the distal esophagus; initial further assessment with endoscopy is recommended to assess for neoplasm. 5. Findings suggestive of cystitis.? Recommend correlation with urinalysis results. ? ? Dictated by: Marlyn Tineo M.D. on 05/17/2022 at 12:14 ? ? Approved by: Marlyn Tineo M.D. on 05/17/2022 at 12:17?? ECG Data Attestation: I personally reviewed and interpreted this ECG as follows: Prior ECG tracings: not available for review Interpretation: Ventricularly paced rhythm with a rate of 67 OR 282, QRS of 162 and QTC of 469. No priors available. MDM Narrative Medical decision making narrative: This is an 86-year-old female with known CVA short-term memory issues who presents after 2 hours of abdominal pain which has since resolved with no other recent symptoms according to her but has had a recent bacterial infection and completed antibiotics yesterday. Patient is tender on right lower quadrant so labs, imaging were obtained as well as urine sample. No appendicitis, patient does appear to have some proctitis, cystitis like changes on CT imaging which fits with her current urine and hiatal hernia which was already aware of. Patient continues to be pain-free at this time. Discussed with and will start antibiotics. Discharge Plan Departure Patient Disposition: Home Clinical Impression: Acute proctitis, Hernia, hiatal, Cystitis Activity Restrictions/Additional Instructions: Please follow-up with your physician. Your workup today does show some proctitis or inflammation at the rectum. Your urine also shows signs of infection. Your culture from last week was reviewed and antibiotic selected based on this. Prescription for Levaquin sent to [facility] in [place]. Please take antibiotics until completely gone. Please return for fevers, persistent pain, persistent vomiting, new or worsening abdominal, back or flank pain, black or bloody stools or other new or concerning symptoms. Prescriptions: New levofloxacin 750 mg tablet 750 mg PO DAILY 7 Days Qty: 7 0RF No Action ASPIRIN (#ASPIRIN) 81 mg PO QDAY Qty: 0 levothyroxine [Synthroid] 50 MCG tablet 50 mcg PO QDAY Qty: 0 [CALCIUM] Qty: 0 [NOVOLOG INSULIN PUMP] Qty: 0 AMLODIPINE BESYLATE (#NORVASC) 5 mg PO QDAY Qty: 0 simvastatin 20 MG tablet 20 mg PO QDAY Qty: 0 [LANTUS ] Qty: 0 HYDROCODONE/ACET (Hydrocodon-Acetaminophen 5-325) 1 tab PO Q8H Qty: 30 0RF amoxicillin-pot clavulanate [Augmentin] 875 MG/125 MG tablet 875 mg PO BID Qty: 14 0RF amoxicillin-pot clavulanate 875-125 mg tablet 1 tab PO BID Qty: 14 0RF Referrals: Joanne Angelo MD [Primary Care Provider] - Visit Report Forms: Patient Portal/API
[2022-05-17 11:31] LABS: PTT Partial Thromboplastin Tim 30 SECONDS (26-36)
[2022-05-17 11:36] LABS: Alanine Aminotransferase 23 IU/L (<35); Albumin 4.4 g/dL (3.5-5.0); Alkaline Phosphatase 117 U/L (38-126); Aspartate Aminotransferase 31 IU/L (14-36); BUN Creatinine Ratio 23.7 (6-22); Bilirubin Total 0.5 mg/dL (0.2-1.3); Blood Urea Nitrogen 22 mg/dL (7-17); Carbon Dioxide 30 mmol/L (22-32); Chloride 103 mmol/L (98-107); Estimated Glomerular Filt Rate > 60 mL/min (>60); Globulin 4.3 g/dL (1.7-4.1); Glucose 114 mg/dL (80-110); HEMOLYSIS < 15 (0-50); Lipase 88 U/L (23-300); Potassium 4.2 mmol/L (3.4-5.1); Sodium 138 mmol/L (137-145); Total Protein 8.7 g/dL (6.3-8.2)
[2022-05-17 11:45] LABS: Appearance Urine UA CLEAR; Bilirubin Urine UA NEGATIVE (NEGATIVE); Color Urine UA YELLOW; Glucose Urine UA NEGATIVE (Negative); Ketones Urine UA NEGATIVE (NEGATIVE); Leukocyte Esterase Urine UA TRACE (NEGATIVE); Nitrite Urine UA NEGATIVE (Negative); Occult Blood Urine UA 3+ (Negative); Protein Urine UA NEGATIVE (Negative); Urobilinogen Urine UA 0.2 E.U./dL (0.2)
--- NOTE | 2022-05-17 11:54 | DI.CT.S_ITS ---
PROCEDURE: CT ABDOMEN PELVIS W CON INDICATIONS: RLQ pain, TECHNIQUE: After the administration of intravenous contrast, axial sections acquired from the lung bases to the pubic symphysis. Coronal and sagittal reformats were performed. For radiation dose reduction, the following was used: automated exposure control, adjustment of mA and/or kV according to patient size. COMPARISON: [facility], CT, CT ABDOMEN PELVIS W CON, 05/27/2020, 13:01. FINDINGS: Image quality: Excellent. Lung bases: Mild interstitial pulmonary opacity at the bilateral lung bases, as before. Heart: No significant findings. ABDOMEN: Liver: Unremarkable. Gallbladder: Gallbladder is contracted, militating against cholecystitis. Biliary ducts: Unremarkable. Pancreas: Unremarkable. Spleen: Unremarkable. Adrenal Glands: Unremarkable. Kidneys and Ureters: Unremarkable. Stomach and Bowel: Small hiatal hernia. Mild thickening of the distal esophagus. Stomach and small bowel are within normal limits. There is moderate fecal distention of the rectum which demonstrates mild surrounding fat stranding. Remainder of the colon is normal in caliber. Normal appendix. Peritoneum: No abnormal intraperitoneal fluid. No free air. 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 Ventral Wall: No hernias. Abdominal Nodes: No retroperitoneal or mesenteric adenopathy by size criteria. Vessels: Aorta and inferior vena cava are normal in size. PELVIS: Pelvic Organs: Calcification within the right aspect of the uterus, consistent with a fibroid. Bladder: Mild thickening of the urinary bladder which demonstrates mild surrounding fat stranding. Pelvic Nodes: No enlarged lymph nodes. Miscellaneous: No hernias are seen. Bones: Unremarkable. IMPRESSION: 1. Proctitis. 2. Normal appendix. 3. Mild chronic interstitial lung disease. 4. Small hiatal hernia associated with thickening of the distal esophagus; initial further assessment with endoscopy is recommended to assess for neoplasm. 5. Findings suggestive of cystitis. Recommend correlation with urinalysis results. Dictated by: Marlyn Tineo M.D. on 05/17/2022 at 12:14 Approved by: Marlyn Tineo M.D. on 05/17/2022 at 12:17
[2022-05-17 12:08] LABS: Amorphous Sediment Urine 1+; Bacteria Urine Moderate (10-30); Culture Indicated Urine Specimen Cultured; RBC Urine 10-30/HPF (0-5/HPF); WBC Urine 5-10/HPF (0-5/HPF)
== END 2022-05-17 13:25 | disposition home or self-care (01) ==
PROVIDERS: Emergency Provider Emergency Medicine; PCP Internal Medicine
DX: K62.89 Other specified diseases of anus and rectum (principal); K44.9 Diaphragmatic hernia without obstruction or gangrene; N30.90 Cystitis, unspecified without hematuria; R10.31 Right lower quadrant pain
CPT/HCPCS: 36415; 51701; 74177; 80053; 81001; 83690; 85025; 85610; 85730; 87086; 93005; 93010; 99284; Q9967

== ENCOUNTER → 2022-10-03 09:31 | Outpatient (CLI) | payer MEDICARE, OTHER, SELFPAY ==
[2022-10-03 10:02] LABS: Appearance Urine UA SL CLOUDY; Bilirubin Urine UA NEGATIVE (NEGATIVE); Color Urine UA LT. YELLOW; Glucose Urine UA NEGATIVE (Negative); Ketones Urine UA NEGATIVE (NEGATIVE); Leukocyte Esterase Urine UA 3+ (NEGATIVE); Nitrite Urine UA POSITIVE (Negative); Occult Blood Urine UA 1+ (Negative); Protein Urine UA NEGATIVE (Negative); Urobilinogen Urine UA 0.2 E.U./dL (0.2)
[2022-10-03 10:06] LABS: pH Urine UA 6.5 (4.5-8.0)
[2022-10-03 10:14] LABS: Bacteria Urine Many (>30); Culture Indicated Urine Specimen Cultured; RBC Urine 0-1/HPF (0-5/HPF); Squamous Epithelial Cell Urine 1-5 /HPF (0-5/HPF); WBC Urine 10-30/HPF (0-5/HPF)
[2022-10-03 11:01] LABS: Hemoglobin A1C% w Est Avg Glu 7.2 % (4.0-6.0)
== END ==
PROVIDERS: PCP Internal Medicine; Referring Provider Urology; Visit Provider Urology
DX: E10.649 Type 1 diabetes mellitus with hypoglycemia without coma (principal); E03.9 Hypothyroidism, unspecified; N39.0 Urinary tract infection, site not specified
CPT/HCPCS: 36415; 81001; 83036; 84443; 87077; 87086; 87186

== ENCOUNTER → 2023-07-20 08:34 | Outpatient (CLI) | payer MEDICARE, OTHER, SELFPAY ==
[2023-07-20 10:08] LABS: Appearance Urine UA CLEAR; Bilirubin Urine UA NEGATIVE (NEGATIVE); Color Urine UA YELLOW; Glucose Urine UA NEGATIVE (Negative); Ketones Urine UA NEGATIVE (NEGATIVE); Leukocyte Esterase Urine UA 3+ (NEGATIVE); Nitrite Urine UA POSITIVE (Negative); Occult Blood Urine UA TRACE-INTACT (Negative); Protein Urine UA NEGATIVE (Negative); Urobilinogen Urine UA 0.2 E.U./dL (0.2); pH Urine UA 7.5 (4.5-8.0)
[2023-07-20 10:36] LABS: Bacteria Urine Moderate (10-30); RBC Urine 0-1/HPF (0-5/HPF); Squamous Epithelial Cell Urine 0-1 /HPF (0-5/HPF); WBC Urine 1-5/HPF (0-5/HPF)
[2023-07-20 10:37] LABS: Amorphous Sediment Urine 1+; Culture Indicated Urine Specimen Cultured
[2023-07-20 14:17] LABS: Creatinine Urine Random 26.2 mg/dL
[2023-07-20 14:22] LABS: Microalbumi Creatinin Ratio Ur 141.2 ug/mg CR (<30); Microalbumin Urine Random 3.7 mg/dL (0-1.6)
== END ==
PROVIDERS: PCP Internal Medicine; Referring Provider Internal Medicine Endocrinology, Diabetes & Metabolism; Visit Provider Internal Medicine Endocrinology, Diabetes & Metabolism
DX: N39.0 Urinary tract infection, site not specified (principal); E10.649 Type 1 diabetes mellitus with hypoglycemia without coma
CPT/HCPCS: 81001; 82043; 82570; 87077; 87086; 87186

== ENCOUNTER → 2023-08-31 13:36 | Outpatient (CLI) | payer MEDICARE, OTHER, SELFPAY ==
[2023-08-31 14:47] LABS: Appearance Urine UA TURBID; Bilirubin Urine UA NEGATIVE (NEGATIVE); Color Urine UA YELLOW; Glucose Urine UA NEGATIVE (Negative); Ketones Urine UA NEGATIVE (NEGATIVE); Leukocyte Esterase Urine UA 3+ (NEGATIVE); Nitrite Urine UA POSITIVE (Negative); Occult Blood Urine UA TRACE-INTACT (Negative); Protein Urine UA 2+ (Negative); Specific Gravity Urine UA <=1.005 (1.000-1.035)
[2023-08-31 14:49] LABS: pH Urine UA >= 9.0 (4.5-8.0)
[2023-08-31 14:58] LABS: Bacteria Urine Many (>30); RBC Urine 0-1/HPF (0-5/HPF); Squamous Epithelial Cell Urine 0-1 /HPF (0-5/HPF); Triple Phosphate Crystal Urine Moderate; WBC Urine 1-5/HPF (0-5/HPF)
[2023-08-31 14:59] LABS: Culture Indicated Urine Specimen Cultured
== END ==
PROVIDERS: Nurse Practitioner Adult Health; PCP Internal Medicine; Referring Provider Internal Medicine; Visit Provider Internal Medicine
DX: R39.9 Unspecified symptoms and signs involving the genitourinary system (principal)
CPT/HCPCS: 81001; 87077; 87086; 87186

== ENCOUNTER → 2024-06-10 10:04 | Outpatient (CLI) | payer MEDICARE, OTHER, SELFPAY ==
[2024-06-10 10:49] LABS: Appearance Urine UA CLEAR; Bilirubin Urine UA NEGATIVE (NEGATIVE); Color Urine UA YELLOW; Glucose Urine UA NEGATIVE (Negative); Ketones Urine UA NEGATIVE (NEGATIVE); Leukocyte Esterase Urine UA 3+ (NEGATIVE); Nitrite Urine UA POSITIVE (Negative); Occult Blood Urine UA TRACE-INTACT (Negative); Protein Urine UA NEGATIVE (Negative); Specific Gravity Urine UA <=1.005 (1.000-1.035); Urobilinogen Urine UA 0.2 E.U./dL (0.2)
[2024-06-10 11:05] LABS: Bacteria Urine Many (>30); Culture Indicated Urine Specimen Cultured; RBC Urine None Seen (0-5/HPF); Squamous Epithelial Cell Urine None Seen (0-5/HPF); Urine Volume 10mL (spun); WBC Urine 1-5/HPF (0-5/HPF)
== END ==
LOC: LAB 10:05
PROVIDERS: PCP Internal Medicine; Referring Provider Internal Medicine Endocrinology, Diabetes & Metabolism; Visit Provider Internal Medicine Endocrinology, Diabetes & Metabolism
DX: N39.0 Urinary tract infection, site not specified (principal)
CPT/HCPCS: 81001; 87077; 87086

== ENCOUNTER → 2024-09-02 08:28 | Outpatient (CLI) | payer MEDICARE, OTHER, SELFPAY ==
[2024-09-02 09:48] LABS: Hemoglobin A1C% w Est Avg Glu 6.5 % (4.0-6.0)
== END ==
LOC: LAB 08:29
PROVIDERS: PCP Internal Medicine; Referring Provider Internal Medicine Endocrinology, Diabetes & Metabolism; Visit Provider Internal Medicine Endocrinology, Diabetes & Metabolism
DX: E03.8 Other specified hypothyroidism (principal)
CPT/HCPCS: 36415; 83036; 84443

== ENCOUNTER 2025-03-17 19:38 | Inpatient (IN) | payer MEDICARE, OTHER, SELFPAY ==
[2025-03-17 19:46] VITALS: BP 156/67; PULSE 98; RESP 16; TEMP 36.9; O2SAT 97; BMI 26.4
--- NOTE | 2025-03-17 20:19 | DI.RAD.S_ITS ---
PROCEDURE: XR CHEST 1V INDICATIONS: altered mental status TECHNIQUE: One view of the chest was acquired. COMPARISON: [facility], CR, XR CHEST 1V, 05/27/2020, 11:57. FINDINGS: Surgical changes and devices: Pacemaker. 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 Lungs and pleura: Lungs are clear. No pleural effusions or pneumothorax. Mediastinum: Mediastinal contours appear normal. Heart size is enlarged. Bones and chest wall: No suspicious bony lesions. Overlying soft tissues appear unremarkable. IMPRESSION: No acute pulmonary process. Dictated by: Nisreen Jarvis M.D. on 03/17/2025 at 21:46 Approved by: Nisreen Jarvis M.D. on 03/17/2025 at 21:47
--- NOTE | 2025-03-17 20:19 | EKG_ITS ---
[facility] [address] [place] [address] Test Date: 2025-03-18 Pat Name: Sofia Strickland Department: [facility] Room: 227 Gender: Female [employer]: DEBI : 1935 Requested By: Order Number: [id number] Reading MD: Saúl Avila MD Measurements Intervals [place] Rate: 83 P: 67 [place]: 282 QRS: -70 QRSD: 160 T: 96 QT: 414 QTc: 486 Interpretive Statements Atrial-sensed ventricular-paced rhythm with prolonged AV conduction Electronically Signed On 03-18-2025 7:39:10 PDT by Saúl Avila MD
[2025-03-17 21:53] LABS: Add Manual Diff / Slide Review NO; Hematocrit 33.8 % (36-46); Hemoglobin 11.5 g/dL (12.0-16.0); Lymphocytes Absolute Auto 900 /uL (1100-4500); Mean Corpuscular HGB Conc 34.1 % (30-36); Mean Corpuscular Hemoglobin 31.8 PG (26-34); Mean Corpuscular Volume 93.2 fL (80-100); Platelet Count 222 X10^3/uL (150-400)
[2025-03-17 21:54] LABS: Alanine Aminotransferase 21 IU/L (<35); Albumin 4.1 g/dL (3.5-5.0); Albumin Globulin Ratio 1.2 (1.0-2.8); Alkaline Phosphatase 127 U/L (38-126); Blood Urea Nitrogen 30 mg/dL (7-17); Calcium 9.8 mg/dL (8.4-10.2); Carbon Dioxide 25 mmol/L (22-32); Chloride 100 mmol/L (98-107); Creatine Kinase 39 U/L (30-135); Estimated Glomerular Filt Rate > 60 mL/min (>60); Globulin 3.4 g/dL (1.7-4.1); Glucose 363 mg/dL (70-99); HEMOLYSIS < 15 (0-50); Lactate (Lactic Acid) 1.4 mmol/L (0.7-2.1); Potassium 4.7 mmol/L (3.4-5.1); Sodium 134 mmol/L (137-145); Total Protein 7.5 g/dL (6.3-8.2)
[2025-03-17 22:06] LABS: Troponin I < 0.012 ng/mL (0.01-0.034)
[2025-03-17 22:11] LABS: Procalcitonin 0.097 ng/mL (<0.5)
[2025-03-17 23:24] LABS: Ethanol (ETOH) < 10 mg/dL (<10)
[2025-03-18] VITALS (51 sets, daily range): BP systolic 116–150; BP diastolic 57–65; PULSE 61–94; RESP 11–36; TEMP 36.2–37.4; O2SAT 89–99; BMI 27.6
--- NOTE | 2025-03-18 00:41 | ED_ITS ---
HPI - Weakness General Chief complaint: Weakness Stated complaint: Wokeup unable to walk Time Seen by Provider: 03/18/25 00:41 Source: family Mode of arrival: Wheelchair History of Present Illness HPI Narrative: Patient is a 89-year-old female with a history of stroke with significant balance issues and short-term memory loss that is ongoing persistent, hypertension hyperlipidemia diabetes insulin-dependent, patient is wheelchair- bound at baseline, presents to the emergency department with for evaluation of increased weakness and confusion. According to the has been patient is normally able to stand and pivot but states that today she has been unable to do so. According to the she did not fall but was eased to the floor earlier today when attempting to take her to the restroom. He also states that he forgot to give her her insulin today. But otherwise no other complaints, additional ROS HPI limited secondary to patient's mental status change. Related Data Home Medications ?Medication ?Instructions ?Recorded ?Confirmed AMLODIPINE BESYLATE (#NORVASC) 5 mg PO QDAY ##0 ASPIRIN (#ASPIRIN) 81 mg PO QDAY ##0 07/19/11 [CALCIUM] ##0 07/19/11 [LANTUS ] ##0 07/19/11 [NOVOLOG INSULIN PUMP] ##0 07/19/11 levothyroxine 50 mcg tablet 50 mcg PO QDAY ##0 1 (Synthroid) simvastatin 20 mg tablet 20 mg PO QDAY ##0 07/19/11 Previous Rx's ?Medication ?Instructions ?Recorded HYDROCODONE/ACET 1 tab PO Q8H ##30 12/01/11 (Hydrocodon-Acetaminophen 5-325) amoxicillin 875 mg-potassium 875 mg (0.875 x 875-125 m g) PO BID 04/08/12 clavulanate 125 mg tablet ##14 (Augmentin) amoxicillin 875 mg-potassium 1 tab PO BID #14 tabs clavulanate 125 mg tablet Allergies Allergy/AdvReac Type Severity Reaction Status Date / Time Sulfa (Sulfonamide Allergy Verified 03/17/25 19:46 Antibiotics) morphine AdvReac Agitated Verified 03/17/25 19:46 Review of Systems Review of Systems ROS Unobtainable: Unobtainable due to mental status/LOC Patient History Medical History (Updated 03/18/25 @ 03:10 by Inocente Gautam DO) Acute UTI AVM (arteriovenous malformation) alcohol intake frequency: holidays/special occasions only Exam Initial Vital Signs Initial Vital Signs: Vital Signs Temperature 98.4 F 03/17/25 19:46 Pulse Rate 98 H 03/17/25 19:46 Respiratory Rate 16 03/17/25 19:46 Blood Pressure 156/67 H 03/17/25 19:46 Pulse Oximetry 97 03/17/25 19:46 Oxygen Delivery Method Room Air 03/17/25 19:46 Course Orders Ordered: ED Orders 03/17/25 20:19 XR chest 1V Stat EKG-12 Lead Stat 03/17/25 21:25 Complete Blood Count AUTO DIFF Stat Comprehensive Metabolic Panel Stat Ethanol (ETOH) Stat Lactate (Lactic Acid) Stat Procalcitonin Stat Troponin & CK Cardiac Panel Stat 03/18/25 00:43 CT head/brain wo con Stat 03/18/25 01:52 Respiratory Panel (Film Array) Stat Urinalysis and Microscopic Stat Urine Culture Stat Urine Drug Screen, Rapid Stat Discontinued Medications Sodium Chloride (Normal Saline 0.9%) 1,000 mls @ 1,000 mls/hr IV BOLUS ONE Stop: 03/18/25 01:44 Last Admin: 03/18/25 01:29 Dose: 1,000 mls/hr Documented By: RANI Vital Signs Vital signs: Vital Signs - 8 hr 03/17/25 19:46 03/18/25 01:57 03/18/25 01:58 Temperature 98.4 F Pulse Rate 98 H 85 Respiratory Rate 16 Blood Pressure 156/67 H Pulse Oximetry 97 97 99 Oxygen Delivery Method Room Air 03/18/25 01:58 03/18/25 02:00 03/18/25 02:00 Temperature Pulse Rate 85 Respiratory Rate 16 Blood Pressure 147/65 H 147/63 H Pulse Oximetry 97 Oxygen Delivery Method Room Air MDM - Weakness Differential Diagnosis Differential diagnosis: Likely anemia, hypoglycemia, hypothyroidism, rhabdomyolysis, sepsis, dehydration and other (CVA, electrolyte abnormality, urinary tract infection, ACS) Lab Data 03/17/25 21:25 03/17/25 21:25 Labs: Lab Results 03/17/25 03/17/25 03/18/25 Range/Units 21:24 21:25 01:52 WBC 9.4 (4.5-11.0) X10^3/uL RBC 3.63 L (4.0-5.2) X10^6/uL Hgb 11.5 L (12.0-16.0) g/dL Hct 33.8 L (36-46) % MCV 93.2 (80-100) fL MCH 31.8 (26-34) PG MCHC 34.1 (30-36) % RDW 13.4 (11.6-14.8) % Plt Count 222 (150-400) X10^3/uL Neut % (Auto) 79.1 H (50-75) % Lymph % (Auto) 9.2 L (25-40) % Cross % (Auto) 11.2 (3-14) % Eos % (Auto) 0.2 L (2-4) % Baso % (Auto) 0.3 (0-2) % Neut # (Auto) 7400 H (3141-0092) /uL Lymph # (Auto) 900 L (0182-7181) /uL Cross # (Auto) 1000 H (0-900) /uL Eos # (Auto) 0 (0-450) /uL Baso # (Auto) 0 (0-100) /uL Sodium 134 L (137-145) mmol/L Potassium 4.7 (3.4-5.1) mmol/L Chloride 100 (98-107) mmol/L Carbon Dioxide 25 (22-32) mmol/L BUN 30 H (7-17) mg/dL Creatinine 0.90 (0.52-1.04) mg/dL Estimated GFR > 60 (>60) mL/min BUN/Creatinine Ratio 33.3 H (6-22) Glucose 363 H (70-99) mg/dL POC Whole Bld Glucose 420 H (70-99) mg/dL Lactate 1.4 (0.7-2.1) mmol/L Calcium 9.8 (8.4-10.2) mg/dL Total Bilirubin 0.5 (0.2-1.3) mg/dL AST 26 (14-36) IU/L ALT 21 (<35) IU/L Alkaline Phosphatase 127 H (38-126) U/L Total Creatine Kinase 39 (30-135) U/L Troponin I < 0.012 (0.01-0.034) ng/mL Total Protein 7.5 (6.3-8.2) g/dL Albumin 4.1 (3.5-5.0) g/dL Globulin 3.4 (1.7-4.1) g/dL Albumin/Globulin Ratio 1.2 (1.0-2.8) Procalcitonin 0.097 (<0.5) ng/mL Urine Color Yellow Urine Appearance Clear Urine pH 5.5 (4.5-8.0) Ur Specific [place] 1.020 (1.000-1.035) Urine Protein 1+ H (Negative) Urine Glucose (UA) 3+ H (Negative) g/dL Urine Ketones 2+ H (NEGATIVE) Urine Occult Blood 3+ H (Negative) Urine Nitrate Positive H (Negative) Urine Bilirubin Negative (NEGATIVE) Urine Urobilinogen 0.2 (0.2) E.U./dL Ur Leukocyte Esterase 1+ H (NEGATIVE) Urine RBC 10-30/hpf H (0-5/HPF) Urine WBC 30-100/hpf H (0-5/HPF) Ur Squamous Epith Cells 1-5 /hpf (0-5/HPF) Urine Bacteria Many (>30) H (None) WBC Casts 5-10/lpf H (None) Ur Culture Indicated? Specimen cultured Vol Urine Centrifuged 10ml (spun) U Opiates 300ng/mL cut Negative (Negative) Ur Oxycodone Screen Negative (Negative) Urine Methadone Screen Negative (Negative) Ur Barbiturates Screen Negative (Negative) U Tricyclic Antidepress Negative (Negative) Ur Phencyclidine Scrn Negative (Negative) Ur Amphetamines Screen Negative (Negative) U Methamphetamines Scrn Negative (Negative) Ur MDMA Scrn (Ecstasy) Negative (Negative) U Benzodiazepines Scrn Negative (Negative) Urine Cocaine Screen Negative (Negative) U Marijuana (THC) Screen Negative (Negative) Urine Specific [place] (Normal) Ethyl Alcohol < 10 (<10) mg/dL Ur Creatinine (Normal) 03/18/25 Range/Units 01:52 WBC (4.5-11.0) X10^3/uL RBC (4.0-5.2) X10^6/uL Hgb (12.0-16.0) g/dL Hct (36-46) % MCV (80-100) fL MCH (26-34) PG MCHC (30-36) % RDW (11.6-14.8) % Plt Count (150-400) X10^3/uL Neut % (Auto) (50-75) % Lymph % (Auto) (25-40) % Cross % (Auto) (3-14) % Eos % (Auto) (2-4) % Baso % (Auto) (0-2) % Neut # (Auto) (7329-3575) /uL Lymph # (Auto) (2573-2718) /uL Cross # (Auto) (0-900) /uL Eos # (Auto) (0-450) /uL Baso # (Auto) (0-100) /uL Sodium (137-145) mmol/L Potassium (3.4-5.1) mmol/L Chloride (98-107) mmol/L Carbon Dioxide (22-32) mmol/L BUN (7-17) mg/dL Creatinine (0.52-1.04) mg/dL Estimated GFR (>60) mL/min BUN/Creatinine Ratio (6-22) Glucose (70-99) mg/dL POC Whole Bld Glucose (70-99) mg/dL Lactate (0.7-2.1) mmol/L Calcium (8.4-10.2) mg/dL Total Bilirubin (0.2-1.3) mg/dL AST (14-36) IU/L ALT (<35) IU/L Alkaline Phosphatase (38-126) U/L Total Creatine Kinase (30-135) U/L Troponin I (0.01-0.034) ng/mL Total Protein (6.3-8.2) g/dL Albumin (3.5-5.0) g/dL Globulin (1.7-4.1) g/dL Albumin/Globulin Ratio (1.0-2.8) Procalcitonin (<0.5) ng/mL Urine Color Urine Appearance Urine pH Normal (4.5-8.0) Ur Specific [place] (1.000-1.035) Urine Protein (Negative) Urine Glucose (UA) (Negative) g/dL Urine Ketones (NEGATIVE) Urine Occult Blood (Negative) Urine Nitrate (Negative) Urine Bilirubin (NEGATIVE) Urine Urobilinogen (0.2) E.U./dL Ur Leukocyte Esterase (NEGATIVE) Urine RBC (0-5/HPF) Urine WBC (0-5/HPF) Ur Squamous Epith Cells (0-5/HPF) Urine Bacteria (None) WBC Casts (None) Ur Culture Indicated? Vol Urine Centrifuged U Opiates 300ng/mL cut (Negative) Ur Oxycodone Screen (Negative) Urine Methadone Screen (Negative) Ur Barbiturates Screen (Negative) U Tricyclic Antidepress (Negative) Ur Phencyclidine Scrn (Negative) Ur Amphetamines Screen (Negative) U Methamphetamines Scrn (Negative) Ur MDMA Scrn (Ecstasy) (Negative) U Benzodiazepines Scrn (Negative) Urine Cocaine Screen (Negative) U Marijuana (THC) Screen (Negative) Urine Specific [place] Normal (Normal) Ethyl Alcohol (<10) mg/dL Ur Creatinine Normal (Normal) Imaging Data Chest x-ray: Radiologist Impression: [address] [address] XRay Report Signed Patient: Sofia Strickland MR#: [id number] : 1935 Acct:[id number] Age/Sex: 89 / F Date of Service: 03/17/25 Loc: ED Accession Number: [id number] Procedure: XR chest 1V Ordering Provider: Inocente Gautam D.O. PROCEDURE: XR CHEST 1V INDICATIONS: altered mental status TECHNIQUE: One view of the chest was acquired. [facility] 11[facility]. FINDINGS: Surgical changes and devices: Pacemaker. Tubing is present overlying the right neck hemithorax possibly related to [employer] shunt. Lungs and pleura: Lungs are clear. No pleural effusions or pneumothorax. Mediastinum: Mediastinal contours appear normal. Heart size is enlarged. Bones and chest wall: No suspicious bony lesions. Overlying soft tissues appear unremarkable. IMPRESSION: No acute pulmonary process. CT scan - head: Radiologist Impression: [address] [address] [address] Scan Report Signed Patient: Sofia Strickland MR#: [id number] : 1935 Acct:[id number] Age/Sex: 89 / F Date of Service: 03/18/25 Loc: ED Accession Number: [id number] Procedure: CT head/brain wo con Ordering Provider: Baluyot,Inocente D.O. PROCEDURE: CT HEAD/BRAIN WO CON INDICATIONS: Altered mental status TECHNIQUE: Noncontrast 4.5 mm thick angled axial sections acquired from the foramen magnum to the vertex, with coronal and sagittal reformats. For radiation dose reduction, the following was used: automated exposure control, adjustment of mA and/or kV according to patient size. COMPARISON: [facility], CT, CT HEAD/BRAIN WO CON, 05/27/2020, 12:19. FINDINGS: Image quality: Diagnostic. CSF spaces: Basal cisterns are patent. No extra-axial fluid collections. The ventricles are symmetric in size and shape. Unchanged appearance of shunt a right posterior approach terminating at the anterior horn the ventricle. Ventricular size is unchanged compared to prior exam. Brain: No intracranial bleeds or mass effect. There is cerebral volume loss, with resultant ventricular and sulcal prominence. There are periventricular and deep white matter chronic small vessel ischemic changes. There is intracranial internal carotid artery atherosclerosis. Skull and face: Postsurgical posterior calvarial changes. Sinuses: Visualized sinuses and mastoids are clear. IMPRESSION: 1. No acute intracranial process. 2. Moderate to severe atrophy and chronic microvascular ischemic changes. ECG Data Interpretation: EKG interpreted by ED physician atrially sensed ventricularly paced at 83 MDM Narrative Medical decision making narrative: Patient is a 89-year-old female with a history of stroke causing baseline memory loss, balance issues that has been ongoing persistent wheelchair bound at baseline diabetes, hyperlipidemia, hypertension presenting from home for evaluation of generalized weakness and increased confusion. According to the has been patient is always baseline confused but states that he believes she has a little bit more confused than normal. Patient at time of evaluation alert to self and place only, has been says she is normally able to stand pivot but was unable to do so today, did not fall however has been states that he did have to lay her to the floor today. Has been also states that patient normally has recurrent UTIs. At time of evaluation patient intermittently alert to self and place only but no focal deficits answering questions appropriately and moving all 4 extremities spontaneously. Patient lab work without any leukocytosis Chem panel unremarkable, patient noted to have hyperglycemia but not in diabetic ketoacidosi, has been states that he forgot to give her insulin, chest x-ray without any acute cardiopulmonary abnormality, CT scan without any acute abnormalities, urinalysis was consistent with acute urinary tract infection, reviewed urine cultures obtained on 06/10/24, does show gross sensitivity Rocephin ordered. Given patient with increased confusion weakness from baseline and acute urinary tract infection will require admission to the hospital. The patient's management plan was discussed Dr. Watson, who agrees to admit the patient to their service and assumes care of this patient at this time. Full admission orders will be placed by the primary team. He is recommending to give patient 30 of Lantus and 7 units regular insulin Discharge Plan Departure Patient Disposition: Home Clinical Impression: Acute metabolic encephalopathy, Acute UTI, Hyperglycemia due to type 1 diabetes mellitus
[2025-03-18] MEDS: SODIUM CHLORIDE 0.9% 1,000 ML 1000 ML IV (01:29)
[2025-03-18 02:31] LABS: Appearance Urine UA CLEAR; Bilirubin Urine UA NEGATIVE (NEGATIVE); Color Urine UA YELLOW; Glucose Urine UA 3+ g/dL (Negative); Ketones Urine UA 2+ (NEGATIVE); Leukocyte Esterase Urine UA 1+ (NEGATIVE); Nitrite Urine UA POSITIVE (Negative); Occult Blood Urine UA 3+ (Negative); Protein Urine UA 1+ (Negative); Specific Gravity Urine UA 1.020 (1.000-1.035); Urobilinogen Urine UA 0.2 E.U./dL (0.2)
[2025-03-18 02:35] LABS: UR Morphine/Opiate cutoff 300 Negative (Negative); Ur Creatinine Normal (Normal); Ur Specific Gravity Normal (Normal); Urine MDMA Negative (Negative); Urine Methamphetamines Negative (Negative); Urine THC Negative (Negative); Urine Tricyclic Antidepressant Negative (Negative); Urine pH Normal (Normal)
[2025-03-18 02:49] LABS: pH Urine UA 5.5 (4.5-8.0)
[2025-03-18 02:52] LABS: Culture Indicated Urine Specimen Cultured
[2025-03-18 03:08] LABS: Coronavirus NL 63 Not Detected (Not Detect)
[2025-03-18 03:13] LABS: SARS- CoV-2 Detected (Not Detecte)
[2025-03-18] MEDS: SODIUM CHLORIDE 0.9% 1,000 ML 75 ML IV ×2 (04:12→17:26)
--- NOTE | 2025-03-18 04:51 | PM.HP.1 ---
History of Present Illness History of Present Illness Date Patient Seen: 03/18/25 Time Patient Seen: 04:51 Chief complaint: Wokeup unable to walk Narrative: 89-year-old female with past medical history of CVA, hypertension, hyperlipidemia, insulin-dependent diabetes, and residual balance issue and short-term memory loss from her CVA, wheelchair-bound at baseline presents with generalized weakness and confusion. Per the patient's who was at the bedside, the patient started to have increasing confusion today. The patient usually on is able to pivot and stand but is unable to do so today due to generalized weakness. There is no report of any fall. The patient also forgot to give her insulin today. Otherwise there is no report of any fever or chills, nausea, vomiting, diarrhea, chest pain or shortness of breath. In the emergency room, the patient was hemodynamically stable and was saturating well on room air. Labs were relatively benign except for glucose in the 300s. UA was positive for UTI. Chest x-ray was clear. CT scan of the head also shows no acute pathology. COVID test came back positive but again patient was saturating well on room air. The patient received IV fluid and IV ceftriaxone. [facility] Medical History (Updated 03/18/25 @ 03:13 by Inocente Gautam DO) Acute UTI AVM (arteriovenous malformation) Social History household members: spouse Meds Home Medications and Allergies Home Medications ?Medication ?Instructions ?Recorded ?Confirmed ?Type aspirin 81 mg capsule 81 mg PO DAILY 03/18/25 03/18/25 History atorvastatin 40 mg tablet 40 mg PO BEDTIME 03/18/25 03/18/25 History insulin aspart U-100 100 unit/mL See Rx Instructions .Route .COMPLEX 03/18/25 03/18/25 History subcutaneous solution (Novolog U-100 Insulin aspart) levothyroxine 88 mcg tablet 88 mcg PO DAILY 03/18/25 03/18/25 History losartan 25 mg tablet 25 mg PO DAILY 03/18/25 03/18/25 History khxdmhdt-hgsjpes-xcxs-lutein tablet 1 tab PO .morning 03/18/25 03/18/25 History polyethylene glycol 3350 17 gram 13 g PO DAILY 03/18/25 03/18/25 History oral powder packet (Miralax) Allergies Allergy/AdvReac Type Severity Reaction Status Date / Time Sulfa (Sulfonamide Allergy Verified 03/17/25 19:46 Antibiotics) morphine AdvReac Agitated Verified 03/17/25 19:46 Review of Systems Review of Systems ROS: Yes All systems reviewed with the patient and are negative except as otherwise documented Exam Vital Signs (past 8 hours): - 03/18/25 01:57 03/18/25 01:58 03/18/25 01:58 Temperature Pulse Rate 85 Respiratory Rate Blood Pressure 147/65 H Pulse Oximetry 97 99 Oxygen Delivery Method 03/18/25 02:00 03/18/25 02:00 03/18/25 02:30 Temperature Pulse Rate 85 86 Respiratory Rate 16 21 Blood Pressure 147/63 H Pulse Oximetry 97 96 Oxygen Delivery Method Room Air 03/18/25 02:31 03/18/25 02:31 03/18/25 03:00 Temperature Pulse Rate 89 92 H Respiratory Rate 22 20 Blood Pressure 150/61 H Pulse Oximetry 97 Oxygen Delivery Method 03/18/25 03:01 03/18/25 03:01 03/18/25 03:05 Temperature 98.1 F Pulse Rate 93 H 89 Respiratory Rate 21 26 H Blood Pressure 120/62 116/57 L Pulse Oximetry 93 98 Oxygen Delivery Method Room Air 03/18/25 03:30 03/18/25 03:30 Temperature Pulse Rate 92 H Respiratory Rate 20 Blood Pressure 142/58 H Pulse Oximetry Oxygen Delivery Method Oxygen Delivery Method Room Air Narrative Exam Narrative: Physical Exam: GENERAL: The patient is not in any acute distressed. Awake and alert. HEENT: Nonicteric sclerae, PERRLA, EOMI. Oropharynx clear. Moist mucous membranes. Conjunctivae appear well perfused. HEART: Regular rate and rhythm without murmurs. No lower extremities edema. LUNGS: Clear to auscultation bilaterally. No wheezing, crackles or rhonchi ABDOMEN: Soft, positive bowel sounds, nontender. SKIN: No rash, no excessive bruising, petechiae, or purpura. NEUROLOGIC: AxO x 2. Cranial nerves II-XII intact without motor/sensory deficit. Objective Labs 03/17/25 21:25 03/17/25 21:25 Labs: Laboratory Results - last 24 hr 03/17/25 03/17/25 03/18/25 21:24 21:25 01:52 WBC 9.4 RBC 3.63 L Hgb 11.5 L Hct 33.8 L MCV 93.2 MCH 31.8 MCHC 34.1 RDW 13.4 Plt Count 222 Neut % (Auto) 79.1 H Lymph % (Auto) 9.2 L [place] % (Auto) 11.2 Eos % (Auto) 0.2 L Baso % (Auto) 0.3 Neut # (Auto) 7400 H Lymph # (Auto) 900 L [place] # (Auto) 1000 H Eos # (Auto) 0 Baso # (Auto) 0 Sodium 134 L Potassium 4.7 Chloride 100 Carbon Dioxide 25 BUN 30 H Creatinine 0.90 Estimated GFR > 60 BUN/Creatinine Ratio 33.3 H Glucose 363 H POC Whole Bld Glucose 420 H Lactate 1.4 Calcium 9.8 Total Bilirubin 0.5 AST 26 ALT 21 Alkaline Phosphatase 127 H Total Creatine Kinase 39 Troponin I < 0.012 Total Protein 7.5 Albumin 4.1 Globulin 3.4 Albumin/Globulin Ratio 1.2 Procalcitonin 0.097 Urine Color Yellow Urine Appearance Clear Urine pH 5.5 Ur Specific [place] 1.020 Urine Protein 1+ H Urine Glucose (UA) 3+ H Urine Ketones 2+ H Urine Occult Blood 3+ H Urine Nitrate Positive H Urine Bilirubin Negative Urine Urobilinogen 0.2 Ur Leukocyte Esterase 1+ H Urine RBC 10-30/hpf H Urine WBC 30-100/hpf H Ur Squamous Epith Cells 1-5 /hpf Urine Bacteria Many (>30) H WBC Casts 5-10/lpf H Ur Culture Indicated? Specimen cultured Vol Urine Centrifuged 10ml (spun) U Opiates 300ng/mL cut Negative Ur Oxycodone Screen Negative Urine Methadone Screen Negative Ur Barbiturates Screen Negative U Tricyclic Antidepress Negative Ur Phencyclidine Scrn Negative Ur Amphetamines Screen Negative U Methamphetamines Scrn Negative Ur MDMA Scrn (Ecstasy) Negative U Benzodiazepines Scrn Negative Urine Cocaine Screen Negative U Marijuana (THC) Screen Negative Urine Specific [place] Ethyl Alcohol < 10 Ur Creatinine Chlamy pneumoniae PCR Adenovirus (PCR) B. pertussis DNA (PCR) B.parapertussis DNA PCR Coronavirus OC43 (PCR) Coronavirus HKU1 (PCR) Coronavirus 229E (PCR) SARS-CoV-2 (PCR) Coronavirus NL63 (PCR) Human Metapneumovir PCR Influenza Type A (PCR) Influenza Type B (PCR) M. pneumoniae (PCR) Parainfluenza 1 (PCR) Parainfluenza 2 (PCR) Parainfluenza 3 (PCR) Parainfluenza 4 (PCR) RSV (PCR) Entero/Rhino (PCR) 03/18/25 03/18/25 01:52 04:25 WBC RBC Hgb Hct MCV MCH MCHC RDW Plt Count Neut % (Auto) Lymph % (Auto) [place] % (Auto) Eos % (Auto) Baso % (Auto) Neut # (Auto) Lymph # (Auto) [place] # (Auto) Eos # (Auto) Baso # (Auto) Sodium Potassium Chloride Carbon Dioxide BUN Creatinine Estimated GFR BUN/Creatinine Ratio Glucose POC Whole Bld Glucose 308 H D Lactate Calcium Total Bilirubin AST ALT Alkaline Phosphatase Total Creatine Kinase Troponin I Total Protein Albumin Globulin Albumin/Globulin Ratio Procalcitonin Urine Color Urine Appearance Urine pH Normal Ur Specific [place] Urine Protein Urine Glucose (UA) Urine Ketones Urine Occult Blood Urine Nitrate Urine Bilirubin Urine Urobilinogen Ur Leukocyte Esterase Urine RBC Urine WBC Ur Squamous Epith Cells Urine Bacteria WBC Casts Ur Culture Indicated? Vol Urine Centrifuged U Opiates 300ng/mL cut Ur Oxycodone Screen Urine Methadone Screen Ur Barbiturates Screen U Tricyclic Antidepress Ur Phencyclidine Scrn Ur Amphetamines Screen U Methamphetamines Scrn Ur MDMA Scrn (Ecstasy) U Benzodiazepines Scrn Urine Cocaine Screen U Marijuana (THC) Screen Urine Specific [place] Normal Ethyl Alcohol Ur Creatinine Normal Chlamy pneumoniae PCR Not detected Adenovirus (PCR) Not detected B. pertussis DNA (PCR) Not detected B.parapertussis DNA PCR Not detected Coronavirus OC43 (PCR) Not detected Coronavirus HKU1 (PCR) Not detected Coronavirus 229E (PCR) Not detected SARS-CoV-2 (PCR) Detected H Coronavirus NL63 (PCR) Not detected Human Metapneumovir PCR Not detected Influenza Type A (PCR) Not detected Influenza Type B (PCR) Not detected M. pneumoniae (PCR) Not detected Parainfluenza 1 (PCR) Not detected Parainfluenza 2 (PCR) Not detected Parainfluenza 3 (PCR) Not detected Parainfluenza 4 (PCR) Not detected RSV (PCR) Not detected Entero/Rhino (PCR) Not detected Assessment & Plan Assessment & Plan narrative: UTI. Admit the patient to medical telemetry as inpatient. Continue IV ceftriaxone and follow-up urine culture. Of note the patient is hemodynamically stable and not septic at this time. Worsening confusion. Again could be from related UTI and dehydration. IV fluid and IV antibiotic to treat above. Monitor mental status. Positive for COVID infection. Again chest x-ray is clear and patient not hypoxic. Hold any treatment for now. Pjp-ipmeurw-ahjxysnhs diabetes. Monitor glucose and will give subcu insulin as needed. Hypothyroidism. Resume home Synthroid. Generalized weakness. Treat as above and PT OT. Hyperlipidemia. Resume home statin. Hypertension. Monitor blood pressure and treat accordingly. DVT prophylaxis heparin subcu. CODE STATUS DNR/DNI. Disposition likely home in 2 to 3 days - As the provider of this telehealth evaluation, requested by the patient's evaluating physician, I attest that I introduced myself to the patient, provided my credentials and determined that telemedicine via a real-time, 2 way interactive audio and video platform is an appropriate and effective means of providing this service. - I reviewed the patient's chart and had a discussion with the member of the patient's treatment team. - The patient and I mutually agreed with continuation of this evaluation via telemedicine. The patient consented for the telemedicine evaluation. - This virtual encounter was taken place from [place] by Dr. Darion Watson. The patient was evaluated at [facility]. The encounter was approximately 35 minutes. The nurse was present during the entire time of the encounter and was able to move the stethoscope in appropriate directions. Time-Based Coding :: [TOTAL MINUTES] spent with patient and on the chart (including review of chart, obtaining history, exam, reviewing outside data, placing orders, documenting exam and treatment plan, and counseling patient) on [DATE].
[2025-03-18] MEDS: INSULIN REGULAR 100 UNIT/ML 3 ML VIAL SUBCUT (05:01)
[2025-03-18 07:08] LABS: MRSA (Nasal) PCR NOT DETECTED (Not Detect)
--- NOTE | 2025-03-18 07:56 | PM.HP.1 ---
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 Per the patient's who was at the bedside, the patient started to have increasing confusion today. The patient usually on is able to pivot and stand but is unable to do so today due to generalized weakness. There is no report of any fall. The patient also forgot to give her insulin today. Otherwise there is no report of any fever or chills, nausea, vomiting, diarrhea, chest pain or shortness of breath. In the emergency room, the patient was hemodynamically stable and was saturating well on room air. Labs were relatively benign except for glucose in the 300s. UA was positive for UTI. Chest x-ray was clear. CT scan of the head also shows no acute pathology. COVID test came back positive but again patient was saturating well on room air. The patient received IV fluid and IV ceftriaxone. S: She was minimally talkative, and denies any acute pain. [facility] Medical History Acute UTI AVM (arteriovenous malformation) Social History household members: spouse Meds Home Medications and Allergies Home Medications ?Medication ?Instructions ?Recorded ?Confirmed ?Type aspirin 81 mg capsule 81 mg PO DAILY 03/18/25 03/18/25 History atorvastatin 40 mg tablet 40 mg PO BEDTIME 03/18/25 03/18/25 History ergocalciferol (vitamin D2) 1,250 1,250 mcg PO .QD 03/18/25 03/18/25 History mcg (50,000 unit) capsule insulin aspart U-100 100 unit/mL See Rx Instructions .Route .COMPLEX 03/18/25 03/18/25 History subcutaneous solution (Novolog U-100 Insulin aspart) insulin glargine 100 unit/mL 5 unit SUBCUT BID 03/18/25 03/18/25 History subcutaneous solution (Lantus U-100 Insulin) levothyroxine 88 mcg tablet 88 mcg PO DAILY 03/18/25 03/18/25 History losartan 25 mg tablet 25 mg PO DAILY 03/18/25 03/18/25 History ucvjmugh-ocaguis-cpiw-lutein tablet 1 tab PO .morning 03/18/25 03/18/25 History polyethylene glycol 3350 17 gram 13 g PO DAILY 03/18/25 03/18/25 History oral powder packet (Miralax) Allergies Allergy/AdvReac Type Severity Reaction Status Date / Time Sulfa (Sulfonamide Allergy Verified 03/17/25 19:46 Antibiotics) morphine AdvReac Agitated Verified 03/17/25 19:46 Review of Systems Review of Systems Narrative: Difficult to obtain due to delayed cognition and answering of questions. Exam Vital Signs (past 8 hours): - 03/18/25 01:57 03/18/25 01:58 03/18/25 01:58 Temperature Pulse Rate 85 Respiratory Rate Blood Pressure 147/65 H Pulse Oximetry 97 99 Oxygen Delivery Method 03/18/25 02:00 03/18/25 02:00 03/18/25 02:30 Temperature Pulse Rate 85 86 Respiratory Rate 16 21 Blood Pressure 147/63 H Pulse Oximetry 97 96 Oxygen Delivery Method Room Air 03/18/25 02:31 03/18/25 02:31 03/18/25 03:00 Temperature Pulse Rate 89 92 H Respiratory Rate 22 20 Blood Pressure 150/61 H Pulse Oximetry 97 Oxygen Delivery Method 03/18/25 03:01 03/18/25 03:01 03/18/25 03:05 Temperature 98.1 F Pulse Rate 93 H 89 Respiratory Rate 21 26 H Blood Pressure 120/62 116/57 L Pulse Oximetry 93 98 Oxygen Delivery Method Room Air 03/18/25 03:30 03/18/25 03:30 Temperature Pulse Rate 92 H Respiratory Rate 20 Blood Pressure 142/58 H Pulse Oximetry Oxygen Delivery Method Oxygen Delivery Method Room Air Narrative Exam Narrative: NAD, awake and in no distress. Very slow to answer questions and intermittent and answering questions. Normocephalic skull, EOMI, anicteric sclera, symmetric pupils. Oropharynx unremarkable, no droop. Neck supple, midline trachea, no adenopathy. Lungs clear, normal rate and effort. Heart regular, no murmur gallop or rub. Abdomen is soft, non distended and non tender. Extremities are free of edema. Skin is free of rash or lesions. Joints are not swollen or deformed. Judgment appears to be abnormal. Objective ECG Impression: Rate: 83 P: 67 CT: 282 QRS: -70 QRSD: 160 T: 96 QT: 414 QTc: 486 Interpretive Statements Atrial-sensed ventricular-paced rhythm with prolonged AV conduction Imaging Chest x-ray: Radiologist's impression: No acute pulmonary process. CT scan - head: Radiologist's impression: 1. No acute intracranial process. 2. Moderate to severe atrophy and chronic microvascular ischemic changes. Labs 03/17/25 21:25 03/17/25 21:25 Labs: Laboratory Results - last 24 hr 03/17/25 03/17/25 03/18/25 21:24 21:25 01:52 WBC 9.4 RBC 3.63 L Hgb 11.5 L Hct 33.8 L MCV 93.2 MCH 31.8 MCHC 34.1 RDW 13.4 Plt Count 222 Neut % (Auto) 79.1 H Lymph % (Auto) 9.2 L [place] % (Auto) 11.2 Eos % (Auto) 0.2 L Baso % (Auto) 0.3 Neut # (Auto) 7400 H Lymph # (Auto) 900 L [place] # (Auto) 1000 H Eos # (Auto) 0 Baso # (Auto) 0 Sodium 134 L Potassium 4.7 Chloride 100 Carbon Dioxide 25 BUN 30 H Creatinine 0.90 Estimated GFR > 60 BUN/Creatinine Ratio 33.3 H Glucose 363 H POC Whole Bld Glucose 420 H Lactate 1.4 Calcium 9.8 Total Bilirubin 0.5 AST 26 ALT 21 Alkaline Phosphatase 127 H Total Creatine Kinase 39 Troponin I < 0.012 Total Protein 7.5 Albumin 4.1 Globulin 3.4 Albumin/Globulin Ratio 1.2 Procalcitonin 0.097 Urine Color Yellow Urine Appearance Clear Urine pH 5.5 Ur Specific [place] 1.020 Urine Protein 1+ H Urine Glucose (UA) 3+ H Urine Ketones 2+ H Urine Occult Blood 3+ H Urine Nitrate Positive H Urine Bilirubin Negative Urine Urobilinogen 0.2 Ur Leukocyte Esterase 1+ H Urine RBC 10-30/hpf H Urine WBC 30-100/hpf H Ur Squamous Epith Cells 1-5 /hpf Urine Bacteria Many (>30) H WBC Casts 5-10/lpf H Ur Culture Indicated? Specimen cultured Vol Urine Centrifuged 10ml (spun) Nasal Screen MRSA (PCR) U Opiates 300ng/mL cut Negative Ur Oxycodone Screen Negative Urine Methadone Screen Negative Ur Barbiturates Screen Negative U Tricyclic Antidepress Negative Ur Phencyclidine Scrn Negative Ur Amphetamines Screen Negative U Methamphetamines Scrn Negative Ur MDMA Scrn (Ecstasy) Negative U Benzodiazepines Scrn Negative Urine Cocaine Screen Negative U Marijuana (THC) Screen Negative Urine Specific [place] Ethyl Alcohol < 10 Ur Creatinine Chlamy pneumoniae PCR Adenovirus (PCR) B. pertussis DNA (PCR) B.parapertussis DNA PCR Coronavirus OC43 (PCR) Coronavirus HKU1 (PCR) Coronavirus 229E (PCR) SARS-CoV-2 (PCR) Coronavirus NL63 (PCR) Human Metapneumovir PCR Influenza Type A (PCR) Influenza Type B (PCR) M. pneumoniae (PCR) Parainfluenza 1 (PCR) Parainfluenza 2 (PCR) Parainfluenza 3 (PCR) Parainfluenza 4 (PCR) RSV (PCR) Entero/Rhino (PCR) 03/18/25 03/18/25 03/18/25 01:52 04:25 05:47 WBC RBC Hgb Hct MCV MCH MCHC RDW Plt Count Neut % (Auto) Lymph % (Auto) [place] % (Auto) Eos % (Auto) Baso % (Auto) Neut # (Auto) Lymph # (Auto) [place] # (Auto) Eos # (Auto) Baso # (Auto) Sodium Potassium Chloride Carbon Dioxide BUN Creatinine Estimated GFR BUN/Creatinine Ratio Glucose POC Whole Bld Glucose 308 H D Lactate Calcium Total Bilirubin AST ALT Alkaline Phosphatase Total Creatine Kinase Troponin I Total Protein Albumin Globulin Albumin/Globulin Ratio Procalcitonin Urine Color Urine Appearance Urine pH Normal Ur Specific [place] Urine Protein Urine Glucose (UA) Urine Ketones Urine Occult Blood Urine Nitrate Urine Bilirubin Urine Urobilinogen Ur Leukocyte Esterase Urine RBC Urine WBC Ur Squamous Epith Cells Urine Bacteria WBC Casts Ur Culture Indicated? Vol Urine Centrifuged Nasal Screen MRSA (PCR) Not detected U Opiates 300ng/mL cut Ur Oxycodone Screen Urine Methadone Screen Ur Barbiturates Screen U Tricyclic Antidepress Ur Phencyclidine Scrn Ur Amphetamines Screen U Methamphetamines Scrn Ur MDMA Scrn (Ecstasy) U Benzodiazepines Scrn Urine Cocaine Screen U Marijuana (THC) Screen Urine Specific [place] Normal Ethyl Alcohol Ur Creatinine Normal Chlamy pneumoniae PCR Not detected Adenovirus (PCR) Not detected B. pertussis DNA (PCR) Not detected B.parapertussis DNA PCR Not detected Coronavirus OC43 (PCR) Not detected Coronavirus HKU1 (PCR) Not detected Coronavirus 229E (PCR) Not detected SARS-CoV-2 (PCR) Detected H Coronavirus NL63 (PCR) Not detected Human Metapneumovir PCR Not detected Influenza Type A (PCR) Not detected Influenza Type B (PCR) Not detected M. pneumoniae (PCR) Not detected Parainfluenza 1 (PCR) Not detected Parainfluenza 2 (PCR) Not detected Parainfluenza 3 (PCR) Not detected Parainfluenza 4 (PCR) Not detected RSV (PCR) Not detected Entero/Rhino (PCR) Not detected Assessment & Plan Assessment & Plan narrative: 1. UTI. Admit the patient to medical telemetry as inpatient. Continue IV ceftriaxone and follow-up urine culture. Of note the patient is hemodynamically stable and not septic at this time. 2. Septic encephalopathy with worsening confusion. Again could be from related UTI and dehydration. IV fluid and IV antibiotic to treat above. Monitor mental status. 3. Positive for COVID infection. Again chest x-ray is clear and patient not hypoxic. Hold any treatment for now. 4. Bqa-foamvwf-wjtdttjca diabetes. Monitor glucose and will give subcu insulin as needed. 5. Hypothyroidism. Resume home Synthroid. 6. Generalized weakness. Treat as above and PT OT. 7. Hyperlipidemia. Resume home statin. 8. Hypertension. Monitor blood pressure and treat accordingly. PLAN: -continue IV antibiotics and follow cultures. -monitor blood pressure. -COVID isolation. -monitor breathing and occasional SaO2. -continue home insulin regimen. Anticipate 2 midnights in the hospital, supports inpatient status. She lives with her , he is the proxy decision maker. DVT prophylaxis heparin subcu. CODE STATUS DNR/DNI. Anticipate 2 nights in the hospital for treatment of acute infection and encephalopathy. Time-Based Coding :: 35 min spent with patient and on the chart (including review of chart, obtaining history, exam, reviewing outside data, placing orders, documenting exam and treatment plan, and counseling patient) on 03/18. Quality MIPS - Admit I confirm the patient?s Advance Care Plan is present, Code status is documented, Surrogate decision maker is in patient?s record [If Yes, STOP here]: Yes MIPS - Meds 'Current medications' to include all prescriptions, spzx-gvc-woiyfry products, herbals, cannabis/cannabidiol products, and vitamin/mineral/dietary (nutritional) supplements. I have utilized all available resources to obtain, update, or review the patient?s current medications. [If Yes, STOP here]: Yes
[2025-03-18] MEDS: INSULIN LISPRO 100 UNIT/ML 3ML VIAL SUBCUT ×3 (08:58→17:31)
[2025-03-18] MEDS: MULTIVITAMIN 1 TABLET 1 TAB PO (08:58)
[2025-03-18] MEDS: LEVOTHYROXINE 88 MCG TABLET PO (08:59)
[2025-03-18] MEDS: ENOXAPARIN 30 MG/0.3 ML SYRINGE SUBCUT (08:59)
[2025-03-18] MEDS: LOSARTAN 25 MG TABLET PO (08:59)
[2025-03-18] MEDS: ASPIRIN EC 81 MG TABLET PO (08:59)
--- NOTE | 2025-03-18 15:40 | PT-IP ANOTE ---
Pt is an 89 y/o female with COVID adm today. PT receives consult and checks on pt who is in ICU bed. Pt is sleeping soundly. Pt is w/c bound and transfers at baseline per notes. Will con't PT efforts next date.
[2025-03-18] MEDS: ACETAMINOPHEN 325 MG TABLET 650 MG PO ×2 (16:23→22:08)
[2025-03-18] MEDS: CODEINE/GUAIFENESIN LIQUID 5ML UDC 10 ML PO (17:19)
[2025-03-18] MEDS: INSULIN GLARGINE 100 UNIT/ML 3ML PEN SUBCUT (20:20)
[2025-03-18] MEDS: fentaNYL 100 MCG/2 ML INJ 25 MCG IV (22:29)
[2025-03-19] VITALS (56 sets, daily range): BP systolic 126–149; BP diastolic 57–81; PULSE 60–92; RESP 10–36; TEMP 36.2–37.7; O2SAT 81–96
--- NOTE | 2025-03-19 04:41 | PC.NURSE ---
Patient is refusing to wear oxygen due to low oxygen levels. Informed patient the risk and the need for the oxygen therapy.
[2025-03-19 05:32] LABS: Add Manual Diff / Slide Review NO; Hematocrit 27.2 % (36-46); Hemoglobin 9.5 g/dL (12.0-16.0); Lymphocytes Absolute Auto 2200 /uL (1100-4500); Mean Corpuscular HGB Conc 34.9 % (30-36); Mean Corpuscular Hemoglobin 32.4 PG (26-34); Mean Corpuscular Volume 92.8 fL (80-100); Platelet Count 156 X10^3/uL (150-400)
[2025-03-19 05:43] LABS: Blood Urea Nitrogen 22 mg/dL (7-17); Calcium 8.5 mg/dL (8.4-10.2); Carbon Dioxide 23 mmol/L (22-32); Chloride 106 mmol/L (98-107); Estimated Glomerular Filt Rate > 60 mL/min (>60); Glucose 168 mg/dL (70-99); HEMOLYSIS < 15 (0-50); Potassium 4.1 mmol/L (3.4-5.1); Sodium 137 mmol/L (137-145)
[2025-03-19] MEDS: SODIUM CHLORIDE 0.9% 1,000 ML 75 ML IV (06:56)
[2025-03-19] MEDS: INSULIN LISPRO 100 UNIT/ML 3ML VIAL SUBCUT ×3 (08:19→17:43)
[2025-03-19] MEDS: INSULIN GLARGINE 100 UNIT/ML 3ML PEN SUBCUT ×2 (08:20→21:27)
[2025-03-19] MEDS: LOSARTAN 25 MG TABLET PO (08:20)
[2025-03-19] MEDS: ASPIRIN EC 81 MG TABLET PO (08:20)
[2025-03-19] MEDS: ENOXAPARIN 40 MG/0.4 ML SYRINGE SUBCUT (08:20)
[2025-03-19] MEDS: CODEINE/GUAIFENESIN LIQUID 5ML UDC 10 ML PO ×2 (08:21→17:41)
[2025-03-19] MEDS: MULTIVITAMIN 1 TABLET 1 TAB PO (08:21)
--- NOTE | 2025-03-19 08:53 | P.PN_ITS ---
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 Per the patient's who was at the bedside, the patient started to have increasing confusion today. The patient usually on is able to pivot and stand but is unable to do so today due to generalized weakness. There is no report of any fall. The patient also forgot to give her insulin today. Otherwise there is no report of any fever or chills, nausea, vomiting, diarrhea, chest pain or shortness of breath. In the emergency room, the patient was hemodynamically stable and was saturating well on room air. Labs were relatively benign except for glucose in the 300s. UA was positive for UTI. Chest x-ray was clear. CT scan of the head also shows no acute pathology. COVID test came back positive but again patient was saturating well on room air. The patient received IV fluid and IV ceftriaxone. S: She was awake and stares at me but does not answer questions. She appears to be comfortable and in no distress. Nursing notes that she was had some complaints of pain but overall has been more relaxed today. Family notes that she was not strong enough to return to her home on [facility] where she lives with her . They are hoping for rehabilitation transition. Exam Vital Signs (past 8 hours): - 03/19/25 01:00 03/19/25 01:30 03/19/25 02:00 Temperature Pulse Rate 86 78 75 Respiratory Rate 30 H 24 22 Blood Pressure Pulse Oximetry 93 92 96 Oxygen Delivery Method Oxygen Flow Rate 03/19/25 02:30 03/19/25 05:30 03/19/25 07:00 Temperature 99.9 F H Pulse Rate 71 60 Respiratory Rate 20 13 Blood Pressure 149/71 H Pulse Oximetry 89 L 91 Oxygen Delivery Method Room Air Oxygen Flow Rate 03/19/25 08:20 03/19/25 08:41 Temperature Pulse Rate 60 74 Respiratory Rate 23 Blood Pressure 145/61 H 145/61 H Pulse Oximetry 90 L Oxygen Delivery Method Oxygen Flow Rate 0 Oxygen Delivery Method Room Air Oxygen Flow Rate 0 Narrative Exam Narrative: NAD, awake and in no distress. Does not answer questions today. Normocephalic skull, EOMI, anicteric sclera, symmetric pupils. Oropharynx unremarkable, no droop. Neck supple, midline trachea, no adenopathy. Lungs clear, normal rate and effort. Heart regular, no murmur gallop or rub. Abdomen is soft, non distended and non tender. Extremities are free of edema. Skin is free of rash or lesions. Joints are not swollen or deformed. Objective ECG Impression: Rate: 83 P: 67 NC: 282 QRS: -70 QRSD: 160 T: 96 QT: 414 QTc: 486 Interpretive Statements Atrial-sensed ventricular-paced rhythm with prolonged AV conduction Imaging Chest x-ray: Radiologist's impression: No acute pulmonary process. CT scan - head: Radiologist's impression: 1. No acute intracranial process. 2. Moderate to severe atrophy and chronic microvascular ischemic changes. Labs 03/19/25 05:20 03/19/25 05:20 Labs: Laboratory Results - last 24 hr 03/18/25 03/18/25 03/19/25 11:32 16:28 05:20 WBC 9.0 RBC 2.93 L Hgb 9.5 L Hct 27.2 L MCV 92.8 MCH 32.4 MCHC 34.9 RDW 13.9 Plt Count 156 Neut % (Auto) 62.2 Lymph % (Auto) 24.4 L [place] % (Auto) 13.2 Eos % (Auto) 0.0 L Baso % (Auto) 0.2 Neut # (Auto) 5600 Lymph # (Auto) 2200 [place] # (Auto) 1200 H Eos # (Auto) 0 Baso # (Auto) 0 Sodium 137 Potassium 4.1 Chloride 106 Carbon Dioxide 23 BUN 22 H Creatinine 0.90 Estimated GFR > 60 BUN/Creatinine Ratio 24.4 H Glucose 168 H D POC Whole Bld Glucose 141 H 139 H Calcium 8.5 03/19/25 07:28 WBC RBC Hgb Hct MCV MCH MCHC RDW Plt Count Neut % (Auto) Lymph % (Auto) [place] % (Auto) Eos % (Auto) Baso % (Auto) Neut # (Auto) Lymph # (Auto) [place] # (Auto) Eos # (Auto) Baso # (Auto) Sodium Potassium Chloride Carbon Dioxide BUN Creatinine Estimated GFR BUN/Creatinine Ratio Glucose POC Whole Bld Glucose 233 H Calcium [facility] Medical History Acute UTI AVM (arteriovenous malformation) Social History household members: spouse Assessment & Plan Assessment & Plan narrative: 1. UTI. Present on admission and active. Cx: GNB pending final. Blood cx negative. 2. Septic encephalopathy with worsening confusion. Present on admission and active. 3. Positive for COVID infection. Present on admission and active. 4. Ily-fkusxin-twogzueke diabetes. Stable. 5. Hypothyroidism. Stable. Resume home Synthroid. 6. Generalized weakness. Treat as above and PT OT. 7. Hyperlipidemia. Stable. 8. Hypertension. Stable. PLAN: -continue IV antibiotics and follow cultures. -monitor blood pressure. -COVID isolation. Not hypoxic. -monitor breathing and occasional SaO2. -continue home insulin regimen. -PT eval (she can usually stand and pivot into a wheelchair at home) SHAAN: 03/20 to SNF. Anticipate 2 midnights in the hospital, supports inpatient status. She lives with her , he is the proxy decision maker. Time-Based Coding :: [TOTAL MINUTES] spent with patient and on the chart (including review of chart, obtaining history, exam, reviewing outside data, placing orders, documenting exam and treatment plan, and counseling patient) on [DATE].
--- NOTE | 2025-03-19 10:26 | PT-IP ANOTE ---
PT consult received. Checked on pt who is sleeping and who makes grimace and no words and has shaking in right arm when awakened. Will hold PT consult at this time given presentation.
--- NOTE | 2025-03-19 10:47 | DIET.CONS ---
Dietary Consultation Note Admission Date: 03/18/2025 03:09 Assessment: 89 y F admitted for UTI, Septic encephalopathy with worsening confusion. Dietitian consulted for admission Juan score. Pt COVID+, EMR reviewed. PO intakes 50-100%, DFM reviewed. Per PT in rounds, pt was up in bed yesterday eating. PMH of stroke and IDDM. No wounds noted in chart. Ht: 162.56 cm Wt: 73 kg BMI: 27.6 UBW: 70 kg Last BM: 03/18/25 (03/18/25 14:40) MNA: 11 Juan Score: 17 Diet: 03/17/25 20:19 NPO Diet Diet Modifications: NPO Type: NPO except for Meds 03/18/25 Breakfast Carbohydrate Consistent Diet Diet Modifications: Carbohydrate level: Medium (3 CHO) Reflex DM orders: No Nutrition Percent Meal Consumed 50% 03/18/25 18:01 Percent Meal Consumed 100% 03/18/25 18:00 Percent Meal Consumed 50% 03/18/25 10:35 Labs: RBC 2.93 X10^6/uL (4.0-5.2) L 03/19/25 05:20 Hgb 9.5 g/dL (12.0-16.0) L 03/19/25 05:20 Hct 27.2 % (36-46) L 03/19/25 05:20 Creatinine 0.90 mg/dL (0.52-1.04) 03/19/25 05:20 Lactate 1.4 mmol/L (0.7-2.1) 03/17/25 21:25 Monitoring/Evaluations: Will monitor PO intakes Electronically Signed by: Isabel Dixon 03/19/25 10:47 Clinical Dietitian [address] [id number]
--- NOTE | 2025-03-19 11:06 | OT.IPNOTE ---
Per nurse, pt not medically appropriate for therapy eval yet, and best to check again tomorrow.
[2025-03-19] MEDS: CODEINE/ACETAMINOPHEN 30/300 TABLET 1 TAB PO ×2 (13:25→21:26)
[2025-03-20] VITALS (54 sets, daily range): BP systolic 139–197; BP diastolic 60–89; PULSE 60–77; RESP 7–27; TEMP 36.1–37.1; O2SAT 90–99
[2025-03-20] MEDS: CODEINE/GUAIFENESIN LIQUID 5ML UDC 10 ML PO ×2 (05:31→12:52)
[2025-03-20] MEDS: LEVOTHYROXINE 88 MCG TABLET PO (05:31)
--- NOTE | 2025-03-20 07:51 | P.PN_ITS ---
Subjective Subjective Date Patient Seen: 03/20/25 Interval history: Blood pressure 163/64. Latest hemoglobin 9.5 on 03/19. Glucose ranging from 215 up to 298. At baseline she uses a wheelchair at home. The current plan is for her to go to [facility] [place] in 1-3 days. She is quite disturbed by her poor sleep last night. Exam Vital Signs (past 8 hours): - 03/20/25 00:00 03/20/25 00:18 03/20/25 00:18 Pulse Rate 60 60 Respiratory Rate 15 15 Blood Pressure 163/64 H 03/20/25 00:30 03/20/25 01:00 03/20/25 01:30 Pulse Rate 60 60 60 Respiratory Rate 16 14 16 Blood Pressure 03/20/25 02:00 03/20/25 02:30 03/20/25 03:00 Pulse Rate 60 60 60 Respiratory Rate 14 14 12 Blood Pressure Oxygen Delivery Method Room Air Oxygen Flow Rate 0 Narrative Exam Narrative: Alert and oriented times 3. No apparent distress. Very disgruntled due to her poor sleep and quite dismissive of attempts to engage in a more positive way. Heart is regular rate and rhythm without murmur Lungs are clear to auscultation bilaterally Extremities have no ankle edema. Objective Labs 03/19/25 05:20 03/19/25 05:20 Labs: Laboratory Results - last 24 hr 03/19/25 03/19/25 03/19/25 11:40 16:12 20:29 POC Whole Bld Glucose 262 H 140 H D 215 H 03/20/25 07:46 POC Whole Bld Glucose 298 H [facility] Medical History Acute UTI AVM (arteriovenous malformation) Social History household members: spouse Assessment & Plan Assessment & Plan narrative: 1. UTI. Present on admission and active. Cx: Klebsiella sensitive to all but ampicillin. Blood cx negative x2. 2. Septic encephalopathy with worsening confusion. Present on admission and active. 3. Positive for COVID infection. Present on admission and active. 4. Nro-astkacy-kaigxowga diabetes. Stable. 5. Hypothyroidism. Stable. Resumed home Synthroid. 6. Generalized weakness. Treat as above and PT OT. 7. Hyperlipidemia. Stable. 8. Hypertension. Stable. PLAN: -continue IV ceftriaxone for Klebsiella UTI. -monitor blood pressure. Add amlodipine to losartan. -COVID isolation. Not hypoxic. -monitor breathing and occasional SaO2. -continue home insulin regimen. -PT evanne-marie (she can usually stand and pivot into a wheelchair at home) SHAAN: 03/21 to [facility]. She lives with her , he is the proxy decision maker. Time-Based Coding :: [TOTAL MINUTES] spent with patient and on the chart (including review of chart, obtaining history, exam, reviewing outside data, placing orders, documenting exam and treatment plan, and counseling patient) on [DATE].
[2025-03-20] MEDS: LOSARTAN 25 MG TABLET PO (08:04)
[2025-03-20] MEDS: ASPIRIN EC 81 MG TABLET PO (08:04)
[2025-03-20] MEDS: INSULIN GLARGINE 100 UNIT/ML 3ML PEN SUBCUT (08:04)
[2025-03-20] MEDS: MULTIVITAMIN 1 TABLET 1 TAB PO (08:04)
[2025-03-20] MEDS: ENOXAPARIN 40 MG/0.4 ML SYRINGE SUBCUT (08:04)
[2025-03-20] MEDS: INSULIN LISPRO 100 UNIT/ML 3ML VIAL SUBCUT ×3 (08:09→17:08)
[2025-03-20] MEDS: ACETAMINOPHEN 325 MG TABLET 650 MG PO (09:29)
--- NOTE | 2025-03-20 09:55 | OT.IP.EVAL ---
Current Diagnoses Urinary tract infection, site not specified (03/18/25) Past Medical History (Last Reviewed 03/18/25 @ 07:57 by Isra Patiño MD) Acute UTI AVM (arteriovenous malformation) Occupational Therapy Inpatient Evaluation/Re-Eval M1 PT/OT-IP Prior Functional Status Start: 03/20/25 09:59 Freq: NEEDED Status: Active Protocol: Document 03/20/25 09:59 [facility] (Rec: 03/20/25 10:15 [facility] Desktop) Medical Review Prior Functional Status Communication I Mobility and Gait Pt able to transfer to the manual wc and toilet with transfer poles with SBA. Pt is wc bound. Activities of Daily Pt needing assist for LB dressing, toileting , Living and IADL's bathing needs and IADl needs. Social History Household Members spouse Living Arrangements House Number of Floors ( One Floor Floors) Home Environment Standard Height Toilet,Walk in Shower,Ramp Home Equipment Manual Wheelchair,Raised Toilet Seat w/Armrests M2 OT-IP Current Condition Start: 03/20/25 09:59 Freq: Status: Active Protocol: Document 03/20/25 09:59 [facility] (Rec: 03/20/25 10:15 [facility] Desktop) Occupational Therapy Current Condition Current Condition Evaluation Date 03/20/25 Treatment Diagnosis UTI, COVID+ Diagnosis Onset Date 03/18/25 M3 OT- IP Subjective and Pain Start: 03/20/25 09:59 Freq: Status: Active Protocol: Document 03/20/25 09:59 [facility] (Rec: 03/20/25 10:15 [facility] Desktop) OT- Subjective Occupational Therapy Visit Type Type Initial Evaluation Visit Start Time 08:55 Visit Stop Time 09:55 Occupational Therapy Visit Comments Patient Comments Pt needing lots of encouragement from her daughter and OT to get up. Patient/Caregiver Pt wants to go home. Goals OT Pain Assessment Pain When Pain Assessed At Rest Pain Present Pain Present Pain Reported Location Head Pain Behaviors Facial Grimacing,Holding Area,Wincing M4 OT- IP ADL's Start: 03/20/25 09:59 Freq: Status: Active Protocol: Document 03/20/25 09:59 [facility] (Rec: 03/20/25 10:15 [facility] Desktop) OT SEN-Mzsg-Bhuklfa Comments OT Self-Feeding Pt slow to eat and needing to take smaller bites and Comments sips. Noted pt coughing on her food and may benefit from swallow eval from MAINTENANCE SERVICE DISPATCHER. OT ADL-Grooming General Evaluation Grooming Ability Minimal Assistance Areas Needing Combing/Brushing Hair,Face Washing Assistance Comments OT Grooming Comments Assist to help comb the back of her hair with EZ while sitting on the EOB. OT ADL-Oral Care Comments Oral Care Comments NOt performed. OT ADL-Dressing General Eval Lower Body Dressing Total Assistance Ability Areas Needing Socks Assistance OT ADL-Toileting General Evaluation Toileting Ability Total Assistance Areas Needing Empty Catheter or Colostomy Assistance Comments OT Toileting Purewick in place. Comments OT ADL-Bathing Comments OT Bathing Comments Sponge bath more appropriate at this time. M5 OT- IP IADL's Start: 03/20/25 09:59 Freq: Status: Active Protocol: Document 03/20/25 09:59 [facility] (Rec: 03/20/25 10:15 [facility] Desktop) OT-Instrumental Activities of Daily Living Home Safety Awareness Ability to Problem Unable to Problem Solve Solve Emergency Situations Medication Management Medication Caregiver Administers Management Money Management Money Management Caregiver Provides Assistance Meal Preparation Meal Preparation Caregiver Provides Assist Judicial Law Clerk Judicial Law Clerk Caregiver Provides Assist M6 OT- IP Functional Cognition Start: 03/20/25 09:59 Freq: Status: Active Protocol: Document 03/20/25 09:59 [facility] (Rec: 03/20/25 10:15 [facility] Desktop) Cognitive Factors Limiting Selfcare Function Cognitive Ability Level of Alertness Alert Patient Orientation Name,Place Attention Span Capable of Focused Attention,Capable of Sustained Ability Attention Ability to Follow Able to Follow One Step Commands with Increased Time, Commands Able to Follow One Step Commands with Repetition Memory Description Short Term Impaired Cognitive Comments Cognitive Assessment Pt needing lots of encouragement to participate in Comments therapy as pt requesting just to lie down and rest. Pt' s daughter present and states pt has difficulty to states her needs when in comes to pain as wincing and then able to figure out pt has a headache and stomach ache. Nurse able to give pt Tylenol. OT- Vision and Hearing OT- Hearing Assessment OT- Hearing Hearing Impaired Assessment OT- Vision Assessment Visual Acuity Glasses For Reading Visual Attentiveness WFL Occular Pursuits WFL M7 OT- IP Mobility and Balance Start: 03/20/25 09:59 Freq: Status: Active Protocol: Document 03/20/25 09:59 [facility] (Rec: 03/20/25 10:15 [facility] Desktop) OT- Bed Mobility Assessment Rolling Level of Assistance Moderate Assistance,1 Person Assistance,Bedrails Supine to Sit Supine to Sit Assist Maximum Assistance,1 Person Assistance,Head of Bed Elevated,Bedrails Sit to Supine Sit to Supine Assist Maximum Assistance,1 Person Assistance,Head of Bed Elevated,Bedrails Scooting Scooting to Edge of Maximum Assistance,1 Person Assistance,Bedrails Bed OT-Transfer Assessment Comments Mobility Comments MODA to assist to roll in the bed. MAX AX 1 assist to unweight her BLE so able to get to the edge of the bed, assist to move her hips with green pad and pt needing assist via OT hand to get upright. Once upright pt able to sit on her own at the edge of bed. Two person assist to help scoot up to the head of bed. Heel cushion place on pt and left pt with nursing aids. OT- Balance Assessment Sitting Balance and Reactions Static Sitting Fair Balance Ability Dynamic Sitting Poor Balance Ability M8 OT- IP Objective Assessments Start: 03/20/25 09:59 Freq: Status: Active Protocol: Document 03/20/25 09:59 [facility] (Rec: 03/20/25 10:15 [facility] Desktop) OT Gross Range of Motion Upper Extremity Range of Motion ROM Impairments Decreased at end ROM OT Strength Upper Extremity Strength Assessment Within Functional Limits Comments Strength Comments BUE 4/5 throughout M9 OT- IP Assessment and Plan Start: 03/20/25 09:59 Freq: Status: Active Protocol: Document 03/20/25 09:59 [facility] (Rec: 03/20/25 10:15 [facility] Desktop) OT Summary Assessment and Plan Potential Rehabilitation Good Potential Analytic Complexity Moderate at Evaluation Summary OT Impairments Pain,Strength,Balance,Functional Cognition,Functional Mobility,Self-Feeding,Grooming,Dressing,Toileting, Bathing,Toilet Transfers,Shower Transfers,Activity Tolerance Progress Towards Slow Progress due to Pain,Slow Progress due to Medical Goals Issues,Slow Progress due to Activity Tolerance,Slow Progress due to Cognition Assessment Summary Pt MOD complexity and main barriers are pain, fatigue, and needing MAXAX 1 for bed mobility need at this time. Pt did have emesis,tired and wanting to lie down after sitting up on the edge of the bed for at least 5 minutes with SBA and heavy us of her BUE. Pt at baseline able to do her own transfer with transfer pole with SBA to her manual wc and then to toilet. Per pt's daughter man has assist for IADL needs, LB dressing , clothing and hygiene needs for toileting and LB dressing needs. Pt will benefit from skilled rehab. Goals Self-Feeding Goal Independent Grooming Goal Independent Dressing Goal Moderate Assistance Toileting Goal Minimal Assistance Bathing Goal Moderate Assistance Toilet Transfer Goal Minimal Assistance Shower Transfer Goal Minimal Assistance Days to Meet Goals 20 Frequency of Treatment Other frequency 5x/week Treatment Plan OT Treatment Plan ADL Training,Functional Cognition Training,Functional Mobility,Patient/Family Education,Discharge Planning Discharge Recommendations OT Discharge SNF Rehab Recommendations Transportation Needs Wheelchair/Cabulance at Discharge
[2025-03-20] MEDS: hydrALAZINE 20 MG/ML VIAL 5 MG IV (12:51)
[2025-03-20] MEDS: LOSARTAN 50 MG TABLET 100 MG PO (13:58)
--- NOTE | 2025-03-20 14:58 | CM.DPNOTE ---
Addendum entered by FELTON Ingram 03/20/25 15:13: ADD: PASRR done. Original Note: DCP Cont According to Adry at [facility]; patient okay to admit Wednesday 03/21 into an isolation room. Placed call to spouse Remy (also COVID+) he explains that he has been patient's primary and only caregiver. Discussed in home care and if spouse would consider hiring help. Spouse states things had been going well up until recently. Spouse anticipates moving patient into an assisted living facility closer to his children in [place], rather than having her home 02/04 care. Reviewed discharge plan. Remy agreeable to patient discharging to [facility]. IMM reviewed by phone, Remy states agreement. Transport arranged for pick out hand 03/21 at 1130. Plan: Discharge to , [facility] bed (COVID+) Wednesday 03/21, pick out hand at 1130. JW
[2025-03-20] MEDS: AMLODIPINE 5 MG TABLET 2.5 MG PO (17:08)
--- NOTE | 2025-03-20 17:51 | PC.NURSE ---
PT REMAINED INTERMITTENTLY CONFUSED BUT ANSWERING QUESTIONS AND FOLLOWING COMMANDS THROUGHOUT SHIFT. CONTINUES TO HAVE PERIODS OF AGITATION/ ANGER WITH NURSING CARE. REFUSING BP CHECKS INTERMITTENTLY. REQUIRES VERBAL COACHING. WORKED WITH PT/OT. RESISTANT BUT AGREED TO AFTER VERBAL EDUCATION ON NEED FOR THERAPY. REFUSED MOST OF MEALS BUT ACCEPTED FLUIDS/ A COUPLE OF BITES. PT STATES SHE DID NOT GET GOOD SLEEP LAST NIGHT AND WANTED TO SLEEP TODAY. BP ELEVATED. MD NOTIFIED AND MEDS ADJUSTED, SEE EMAR. SPOKE TO DAUGHTER JONNY ON PHONE REGARDING POC. PLAN TO TRANSFER PATIENT TO [facility] 03/21.
--- NOTE | 2025-03-20 17:55 | PT.IIE ---
Current Diagnoses Urinary tract infection, site not specified (03/18/25) Medical History (Last Reviewed 03/18/25 @ 07:57 by Isra Patiño MD) Acute UTI AVM (arteriovenous malformation) Physical Therapy Inpatient Evaluation/Re-Eval M1 PT/OT-IP Prior Functional Status Start: 03/20/25 09:59 Freq: NEEDED Status: Active Protocol: Document 03/20/25 09:59 [facility] (Rec: 03/20/25 10:15 [facility] Desktop) Medical Review Prior Functional Status Communication I Mobility and Gait Pt able to transfer to the manual wc and toilet with transfer poles with SBA. Pt is wc bound. Activities of Daily Pt needing assist for LB dressing, toileting , and Living and IADL's bathing needs. Social History Household Members spouse Living Arrangements House Number of Floors ( One Floor Floors) Home Environment Standard Height Toilet,Walk in Shower,Ramp Home Equipment Manual Wheelchair,Raised Toilet Seat w/Armrests M1 PT/OT-IP Prior Functional Status Start: 03/20/25 17:40 Freq: NEEDED Status: Active Protocol: Document 03/20/25 17:41 SERVICE INSPECTOR (Rec: 03/20/25 17:53 SERVICE INSPECTOR [id number]) Medical Review Prior Functional Status Medical History Yes Reviewed Communication I Mobility and Gait Pt able to transfer to the manual wc and toilet with transfer poles with SBA. Pt is wc bound. Activities of Daily Pt needing assist for LB dressing, toileting , and Living and IADL's bathing needs. Social History Household Members spouse Living Arrangements House Number of Floors ( One Floor Floors) Home Environment Standard Height Toilet,Walk in Shower,Ramp Home Equipment Manual Wheelchair,Raised Toilet Seat w/Armrests M2 PT-IP Current Condition Start: 03/20/25 17:40 Freq: NEEDED Status: Active Protocol: Document 03/20/25 17:41 SERVICE INSPECTOR (Rec: 03/20/25 17:53 SERVICE INSPECTOR [id number]) Physical Therapy Current Condition Current Condition Evaluation Date 03/20/25 Treatment Diagnosis generalized weakness, confusion M3 PT-IP Subjective Start: 03/20/25 17:40 Freq: NEEDED Status: Active Protocol: Document 03/20/25 17:41 SERVICE INSPECTOR (Rec: 03/20/25 17:53 SERVICE INSPECTOR [id number]) Subjective Physical Therapy Visit Type Type Initial Evaluation Visit Start Time 13:52 Visit Stop Time 14:15 Therapy Pain Assessment Pain When Pain Assessed At Rest Pain Present Pain Present Denied Pain M4 PT-IP Mobility and Gait Start: 03/20/25 17:40 Freq: NEEDED Status: Active Protocol: Document 03/20/25 17:41 SERVICE INSPECTOR (Rec: 03/20/25 17:53 SERVICE INSPECTOR [id number]) PT-Bed Mobility Assessment Rolling Level of Assist Moderate Assistance Supine to Sit Supine to Sit Moderate Assistance,1 Person Assistance Sit to Supine Sit to Supine Moderate Assistance,1 Person Assistance Scooting Scooting to Edge of Standby Assistance Bed Scooting Up and Down Maximum Assistance in Bed PT-Transfer Assessment Comments Mobility Comments Pt declines sit<>stand or transfers Gait Assessment Comments Gait Comments Pt declines gait PT-Balance Assessment Sitting Balance and Reactions Static Sitting Good Balance Ability Dynamic Sitting Fair Balance Ability M5 PT-IP Objective Assessments Start: 03/20/25 17:40 Freq: NEEDED Status: Active Protocol: Document 03/20/25 17:41 SERVICE INSPECTOR (Rec: 03/20/25 17:53 SERVICE INSPECTOR [id number]) Gross Range of Motion Lower Extremity ROM Assessment Within Functional Limits Strength Lower Extremity Strength Assessment Bilaterally Impaired Comments Strength Comments grossly 2+/5 M6 PT-IP Treatment Start: 03/20/25 17:40 Freq: NEEDED Status: Active Protocol: Document 03/20/25 17:41 SERVICE INSPECTOR (Rec: 03/20/25 17:53 SERVICE INSPECTOR [id number]) Physical Therapy Treatment Education Education Provided Safety Other Treatments Other Treatment exercises performed sitting at EOB: B ankle pumps x10, Performed B LAQs x10, B marching x10, B glute sets x10 M7 PT-IP Assessment and Plan Start: 03/20/25 17:40 Freq: NEEDED Status: Active Protocol: Document 03/20/25 17:41 SERVICE INSPECTOR (Rec: 03/20/25 17:53 SERVICE INSPECTOR [id number]) PT Summary Assessment and Plan Potential Rehabilitation Fair Potential Status of Condition Stable at Evaluation Summary Impairments Strength,Balance,Cognition,Bed Mobility,Transfers,Gait, Activity Tolerance Assessment Summary With motivation from PT and nurse pt agreed to sit at EOB to take pills and performed BLE exercises for a total of ~10 mins sitting at EOB. Pt with CGA during static sitting and min A while leaning back to take pills. Goals Bed Mobility Goal Independent Transfer Goal Standby Assistance Frequency of Treatment Frequency Of Once a Day Treatment Treatment Plan Physical Therapy Bed Mobility Training,Transfer Training,Therapeutic Treatment Plan Exercise,Balance Retraining,Discharge Planning, Neuromuscular Re-ed Recommendations To Nursing Amount of Assist 2 Person Assist Needed Discharge Recommendations PT Discharge SNF Rehab Recommendations Transportation Needs Wheelchair/Cabulance at Discharge - PT assist x2 for sit<>Stands and transfers
[2025-03-20] MEDS: INSULIN GLARGINE 100 UNIT/ML 3ML PEN 7 UNIT SUBCUT (20:27)
[2025-03-20] MEDS: ONDANSETRON 4 MG/2 ML INJ IV (20:42)
[2025-03-20] MEDS: AMLODIPINE 5 MG TABLET PO (22:28)
[2025-03-21] VITALS (72 sets, daily range): BP systolic 135–188; BP diastolic 58–103; PULSE 60–78; RESP 8–26; TEMP 35.9–36.3; O2SAT 79–100
--- NOTE | 2025-03-21 08:07 | P.DS_ITS ---
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 Per the patient's who was at the bedside, the patient started to have increasing confusion today. The patient usually on is able to pivot and stand but is unable to do so today due to generalized weakness. There is no report of any fall. The patient also forgot to give her insulin today. Otherwise there is no report of any fever or chills, nausea, vomiting, diarrhea, chest pain or shortness of breath. In the emergency room, the patient was hemodynamically stable and was saturating well on room air. Labs were relatively benign except for glucose in the 300s. UA was positive for UTI. Chest x-ray was clear. CT scan of the head also shows no acute pathology. COVID test came back positive but again patient was saturating well on room air. The patient received IV fluid and IV ceftriaxone. Hospital course: 03/20: Blood pressure 163/64. Latest hemoglobin 9.5 on 03/19. Glucose ranging from 215 up to 298. At baseline she uses a wheelchair at home. The current plan is for her to go to [facility] in 1-3 days. She is quite disturbed by her poor sleep last night. 03/21: Not feeling well vomiting during the night not eating or drinking CBC and comprehensive metabolic is unremarkable patient is started on intravenous dextrose and insulin 03/22: No vomiting eating very small bites a little less ill appearing than before has been maintained on intravenous D5 and with insulin 03/23: Patient is still not eating requiring continuing IV D5 03/24: Patient has no eating sufficient amounts of her diet we will discontinue IV D5 and transfer to alf Review of systems: Generalized malaise nausea No chest pain palpitations shortness for breath new line No paresthesia paresis No urinary symptoms Physical exam: Chronically ill and acutely ill-appearing female more animated HEENT dry oropharynx Heart rate and rhythm regular lungs clear Abdomen nondistended Extremities no edema Moves all extremities Assessment and plan: 1. UTI. Present on admission and active. Cx: Klebsiella sensitive to all but ampicillin. Blood cx negative x2. * On IV ceftriaxone can deescalate to oral Omnicef2. Septic encephalopathy markedly improved * Slowly improving in small increments by the day 3. Positive for COVID infection. * Slowly improving clinically4. insulin-dependent diabetes. * On intravenous dextrose with insulin to maintain * Can discontinue IV dextrose when is taking sufficient p.o. * * 5. Hypothyroidism. Stable. Resumed home Synthroid. 6. Generalized weakness. Treat as above and PT OT. 7. Hyperlipidemia. Stable. 8. Hypertension. Stable. PLAN: Discharge to alf Time-Based Coding :: 35 minutes spent with patient and on the chart (including review of chart, obtaining history, exam, reviewing outside data, placing orders, documenting exam and treatment plan, and counseling patient) Discharge Providers Provider Date of admission: 03/18/25 03:09 Discharge Date: 03/24/25 Primary care physician: Joanne Angelo MD Consults: 03/18/25 03:10 Consult to Occupational Therapy Evaluate & Treat Comment: Physician Instructions: Evaluate and treat Consult to Physical Therapy Evaluate & Treat Comment: Physician Instructions: Evaluate and Treat Discharge provider: Hernesto Shukla MD Exam Vital Signs (past 8 hours): - 03/21/25 00:30 03/21/25 01:00 03/21/25 01:01 Pulse Rate 60 60 60 Respiratory Rate 10 L 15 10 L Blood Pressure Pulse Oximetry Oxygen Flow Rate 03/21/25 01:01 03/21/25 01:30 03/21/25 01:39 Pulse Rate 60 Respiratory Rate 8 L Blood Pressure 188/74 H 148/103 H Pulse Oximetry 98 Oxygen Flow Rate 1.5 03/21/25 01:39 03/21/25 02:00 03/21/25 02:01 Pulse Rate 61 60 Respiratory Rate 18 12 Blood Pressure 163/62 H Pulse Oximetry 98 95 Oxygen Flow Rate 1.5 1.5 03/21/25 02:01 03/21/25 02:20 03/21/25 02:20 Pulse Rate 60 68 Respiratory Rate 13 15 Blood Pressure 165/70 H Pulse Oximetry 98 97 Oxygen Flow Rate 1.5 1.5 03/21/25 02:30 03/21/25 03:00 03/21/25 03:01 Pulse Rate 60 67 62 Respiratory Rate 10 L 14 11 L Blood Pressure Pulse Oximetry 93 99 98 Oxygen Flow Rate 1.5 1.5 1.5 03/21/25 03:01 03/21/25 03:30 03/21/25 04:00 Pulse Rate 60 60 Respiratory Rate 9 L 11 L Blood Pressure 175/69 H Pulse Oximetry 92 94 Oxygen Flow Rate 1.5 1.5 03/21/25 04:01 03/21/25 04:01 03/21/25 04:30 Pulse Rate 63 60 Respiratory Rate 13 10 L Blood Pressure 156/88 H Pulse Oximetry 95 96 Oxygen Flow Rate 1.5 0 03/21/25 05:00 03/21/25 05:00 03/21/25 05:30 Pulse Rate 60 60 Respiratory Rate 14 11 L Blood Pressure 167/81 H Pulse Oximetry 96 94 Oxygen Flow Rate 0 03/21/25 06:00 03/21/25 06:01 03/21/25 06:01 Pulse Rate 60 67 Respiratory Rate 13 14 Blood Pressure 154/79 H Pulse Oximetry 99 95 Oxygen Flow Rate 0 0 Oxygen Delivery Method Room Air,Nasal Cannula Oxygen Flow Rate 0 Objective Labs 03/21/25 08:53 03/21/25 08:53 Labs: Laboratory Results - last 24 hr 03/20/25 03/20/25 03/20/25 11:34 16:49 20:23 POC Whole Bld Glucose 223 H 200 H 163 H 03/21/25 07:30 POC Whole Bld Glucose 281 H D PFSH Medical History Acute UTI AVM (arteriovenous malformation) Social History household members: spouse Discharge Plan Discharge Plan Patient Disposition: SNF Transfer to: [facility] Discharge orders & Medications Prescriptions: New ciprofloxacin HCl [Cipro] 250 mg tablet 250 mg PO BID Qty: 10 0RF Continued polyethylene glycol 3350 [Miralax] 17 gram powder in packet 13 g PO DAILY Patient Comments: Patient takes in the AM levothyroxine 88 mcg tablet 88 mcg PO DAILY atorvastatin 40 mg tablet 40 mg PO BEDTIME Patient Comments: [NO ORIGINAL SIG] losartan 25 mg tablet 25 mg PO DAILY insulin aspart U-100 [Novolog U-100 Insulin aspart] 100 unit/mL solution See Rx Instructions .ROUTE .COMPLEX Rx Instructions: see pt sliding scale; based on 20 gm Carb meals [id number]-revmhoe-thta-lutein Tablet 1 tab PO .morning aspirin 81 mg capsule 81 mg PO DAILY insulin glargine [Lantus U-100 Insulin] 100 unit/mL solution 5 unit SUBCUT BID Patient Comments: [NO ORIGINAL SIG] Rx Instructions: 5 units BID ergocalciferol (vitamin D2) 1,250 mcg (50,000 unit) capsule 1,250 mcg PO .QD Patient Comments: [NO ORIGINAL SIG] Follow up/Referrals: Joanne Angelo MD [Primary Care Provider, Internal Medicine] Visit Report/Discharge Packet Stand Alone Forms: Patient Portal/API Discharge Data Primary Care Provider: Jaonne Angelo
[2025-03-21] MEDS: ASPIRIN EC 81 MG TABLET PO (08:11)
[2025-03-21] MEDS: AMLODIPINE 5 MG TABLET PO (08:11)
[2025-03-21] MEDS: LOSARTAN 50 MG TABLET 100 MG PO (08:11)
[2025-03-21] MEDS: MULTIVITAMIN 1 TABLET 1 TAB PO (08:11)
[2025-03-21] MEDS: INSULIN LISPRO 100 UNIT/ML 3ML VIAL SUBCUT ×3 (08:13→17:56)
[2025-03-21] MEDS: INSULIN GLARGINE 100 UNIT/ML 3ML PEN 7 UNIT SUBCUT ×2 (08:13→21:43)
[2025-03-21 09:03] LABS: Base Excess VBG -0.8 mmol/L (0-4); HCO3 VBG 24 mmol/L (24-28); Oxygen Saturation VBG 89 % (70-75); PCO2 VBG 39.2 mmHg (45-50); PO2 VBG 57 mmHg (35-45); Total CO2 VBG 23 mmol/L (24-29); pH VBG 7.39 (7.33-7.43)
[2025-03-21 09:08] LABS: Add Manual Diff / Slide Review NO; Hematocrit 31.7 % (36-46); Hemoglobin 11.0 g/dL (12.0-16.0); Lymphocytes Absolute Auto 2400 /uL (1100-4500); Mean Corpuscular HGB Conc 34.7 % (30-36); Mean Corpuscular Hemoglobin 32.0 PG (26-34); Mean Corpuscular Volume 92.1 fL (80-100); Platelet Count 169 X10^3/uL (150-400)
[2025-03-21 09:19] LABS: Alanine Aminotransferase 24 IU/L (<35); Albumin 3.4 g/dL (3.5-5.0); Albumin Globulin Ratio 1.0 (1.0-2.8); Alkaline Phosphatase 93 U/L (38-126); Blood Urea Nitrogen 16 mg/dL (7-17); Calcium 8.4 mg/dL (8.4-10.2); Carbon Dioxide 23 mmol/L (22-32); Chloride 101 mmol/L (98-107); Estimated Glomerular Filt Rate > 60 mL/min (>60); Globulin 3.3 g/dL (1.7-4.1); Glucose 281 mg/dL (70-99); HEMOLYSIS < 15 (0-50); Potassium 3.7 mmol/L (3.4-5.1); Sodium 135 mmol/L (137-145); Total Protein 6.7 g/dL (6.3-8.2)
--- NOTE | 2025-03-21 09:21 | CM.DPNOTE ---
DCP note HAND EDGE BANDER reviewed EMR per Provider, not stable to dc today to [facility]. continues to remain ill. provided script/signed med list. HAND EDGE BANDER updated Adry at . Tentatively set up tomorrow at 11:30. HAND EDGE BANDER updated spouse Remy [phone]. appreciated update. P: anticipate dc to [facility] when medically stable, potentially tomorrow 11:30. CM team will continue to follow closely for DCP coordination FELTON Hernandez
[2025-03-21] MEDS: DEXTROSE 5%-0.9% NS 1,000 ML 84 ML IV ×2 (11:10→23:05)
--- NOTE | 2025-03-21 18:28 | PC.NURSE ---
PT C/O NOT FEELING WELL THIS MORNING. FEELING NAUSEATED AND OVERALL NOT WELL. DR HANSEN BY TO SPEAK WITH PATIENT. IVF/ LABS STARTED. PATIENT STARTED TO FEEL BETTER AROUND LUNCH TIME. DAUGHTER AT BEDSIDE. PT ACCEPTED PUDDING. PATIENT STATES SHE IS FEELING MUCH BETTER AND VISITED FOR AROUND 2 HOURS WITH DAUGHTER. 1 SMALL BM TODAY. PATIENT ALLOWED TO SLEEP AFTER DAUGHTER LEFT. ATE A FEW BITES OF DINNER. PLAN TO TRANSFER TO [facility] TOMORROW.
--- NOTE | 2025-03-21 18:44 | P.PN_ITS ---
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 Per the patient's who was at the bedside, the patient started to have increasing confusion today. The patient usually on is able to pivot and stand but is unable to do so today due to generalized weakness. There is no report of any fall. The patient also forgot to give her insulin today. Otherwise there is no report of any fever or chills, nausea, vomiting, diarrhea, chest pain or shortness of breath. In the emergency room, the patient was hemodynamically stable and was saturating well on room air. Labs were relatively benign except for glucose in the 300s. UA was positive for UTI. Chest x-ray was clear. CT scan of the head also shows no acute pathology. COVID test came back positive but again patient was saturating well on room air. The patient received IV fluid and IV ceftriaxone. Hospital course: 03/20: Blood pressure 163/64. Latest hemoglobin 9.5 on 03/19. Glucose ranging from 215 up to 298. At baseline she uses a wheelchair at home. The current plan is for her to go to [facility] in 1-3 days. She is quite disturbed by her poor sleep last night. 03/21: Not feeling well vomiting during the night not eating or drinking CBC and comprehensive metabolic is unremarkable patient is started on intravenous dextrose and insulin Review of systems: Generalized malaise nausea No chest pain palpitations shortness for breath new line No paresthesia paresis No urinary symptoms Physical exam: Chronically ill and acutely ill-appearing female very bradykinetic HEENT dry oropharynx Heart rate and rhythm regular lungs clear Abdomen nondistended Extremities no edema Moves all extremities Assessment and plan: 1. UTI. Present on admission and active. Cx: Klebsiella sensitive to all but ampicillin. Blood cx negative x2. 2. Septic encephalopathy with worsening confusion. Present on admission and active. 3. Positive for COVID infection. Present on admission and active. 4. Ohb-oyrukfc-zugwpyyfr diabetes. Stable. 5. Hypothyroidism. Stable. Resumed home Synthroid. 6. Generalized weakness. Treat as above and PT OT. 7. Hyperlipidemia. Stable. 8. Hypertension. Stable. PLAN: -continue IV ceftriaxone for Klebsiella UTI. -monitor blood pressure. Add amlodipine to losartan. -COVID isolation. Not hypoxic. -monitor breathing and occasional SaO2. -continue home insulin regimen. -PT alexx (she can usually stand and pivot into a wheelchair at home) She lives with her , he is the proxy decision maker. Time-Based Coding :: 35 minutes spent with patient and on the chart (including review of chart, obtaining history, exam, reviewing outside data, placing orders, documenting exam and treatment plan, and counseling patient) Exam Vital Signs (past 8 hours): - 03/21/25 12:00 03/21/25 15:55 03/21/25 16:00 Temperature 97.3 F L 97.2 F L Pulse Rate 66 60 Respiratory Rate 18 20 Blood Pressure 154/69 H 144/67 H 144/67 H Pulse Oximetry 91 93 Oxygen Flow Rate 0 0 Oxygen Delivery Method Room Air Oxygen Flow Rate 0 Objective Labs 03/21/25 08:53 03/21/25 08:53 Labs: Laboratory Results - last 24 hr 03/20/25 03/21/25 03/21/25 20:23 07:30 08:53 WBC 6.3 RBC 3.44 L Hgb 11.0 L Hct 31.7 L MCV 92.1 MCH 32.0 MCHC 34.7 RDW 13.6 Plt Count 169 Neut % (Auto) 53.4 Lymph % (Auto) 38.7 Forrest % (Auto) 6.9 Eos % (Auto) 0.5 L Baso % (Auto) 0.5 Neut # (Auto) 3300 Lymph # (Auto) 2400 Forrest # (Auto) 400 Eos # (Auto) 0 Baso # (Auto) 0 VBG pH VBG pCO2 VBG pO2 VBG HCO3 VBG Total CO2 VBG O2 Saturation VBG Base Excess Sodium 135 L Potassium 3.7 Chloride 101 Carbon Dioxide 23 BUN 16 Creatinine 0.61 Estimated GFR > 60 BUN/Creatinine Ratio 26.2 H Glucose 281 H D POC Whole Bld Glucose 163 H 281 H D Calcium 8.4 Total Bilirubin 0.4 AST 35 ALT 24 Alkaline Phosphatase 93 Total Protein 6.7 Albumin 3.4 L Globulin 3.3 Albumin/Globulin Ratio 1.0 03/21/25 03/21/25 03/21/25 08:59 11:34 16:32 WBC RBC Hgb Hct MCV MCH MCHC RDW Plt Count Neut % (Auto) Lymph % (Auto) Forrest % (Auto) Eos % (Auto) Baso % (Auto) Neut # (Auto) Lymph # (Auto) Forrest # (Auto) Eos # (Auto) Baso # (Auto) VBG pH 7.39 VBG pCO2 39.2 L VBG pO2 57 H VBG HCO3 24 VBG Total CO2 23 L VBG O2 Saturation 89 H VBG Base Excess -0.8 L Sodium Potassium Chloride Carbon Dioxide BUN Creatinine Estimated GFR BUN/Creatinine Ratio Glucose POC Whole Bld Glucose 210 H 238 H Calcium Total Bilirubin AST ALT Alkaline Phosphatase Total Protein Albumin Globulin Albumin/Globulin Ratio 03/21/25 17:53 WBC RBC Hgb Hct MCV MCH MCHC RDW Plt Count Neut % (Auto) Lymph % (Auto) Forrest % (Auto) Eos % (Auto) Baso % (Auto) Neut # (Auto) Lymph # (Auto) Forrest # (Auto) Eos # (Auto) Baso # (Auto) VBG pH VBG pCO2 VBG pO2 VBG HCO3 VBG Total CO2 VBG O2 Saturation VBG Base Excess Sodium Potassium Chloride Carbon Dioxide BUN Creatinine Estimated GFR BUN/Creatinine Ratio Glucose POC Whole Bld Glucose 238 H Calcium Total Bilirubin AST ALT Alkaline Phosphatase Total Protein Albumin Globulin Albumin/Globulin Ratio [facility] Medical History Acute UTI AVM (arteriovenous malformation) Social History household members: spouse Assessment & Plan Time-Based Coding :: [TOTAL MINUTES] spent with patient and on the chart (including review of chart, obtaining history, exam, reviewing outside data, placing orders, documenting exam and treatment plan, and counseling patient) on [DATE].
[2025-03-21] MEDS: ATORVASTATIN 20 MG TABLET 40 MG PO (21:38)
[2025-03-21] MEDS: CODEINE/ACETAMINOPHEN 30/300 TABLET 1 TAB PO (21:39)
[2025-03-21] MEDS: ONDANSETRON 4 MG/2 ML INJ IV (21:42)
[2025-03-22] VITALS (23 sets, daily range): BP systolic 127–193; BP diastolic 58–83; PULSE 60–78; RESP 8–20; TEMP 36.2–36.6; O2SAT 93–100
[2025-03-22] MEDS: LEVOTHYROXINE 88 MCG TABLET PO (05:43)
[2025-03-22] MEDS: SODIUM CHLORIDE 0.9% FLUSH 10 ML IV (05:58)
[2025-03-22] MEDS: ONDANSETRON 4 MG/2 ML INJ IV (05:58)
[2025-03-22] MEDS: ACETAMINOPHEN 325 MG TABLET 650 MG PO (08:23)
[2025-03-22] MEDS: ENOXAPARIN 40 MG/0.4 ML SYRINGE SUBCUT (08:24)
[2025-03-22] MEDS: LOSARTAN 50 MG TABLET 100 MG PO (08:24)
[2025-03-22] MEDS: ASPIRIN EC 81 MG TABLET PO (08:24)
[2025-03-22] MEDS: AMLODIPINE 5 MG TABLET PO (08:24)
[2025-03-22] MEDS: MULTIVITAMIN 1 TABLET 1 TAB PO (08:24)
[2025-03-22] MEDS: INSULIN GLARGINE 100 UNIT/ML 3ML PEN 7 UNIT SUBCUT (08:24)
--- NOTE | 2025-03-22 10:49 | PT-IP ANOTE ---
Pt discussed in rounds. Pt did not d/c as planned last date. She will not d/c today either and will initiate PT efforts this date.
[2025-03-22] MEDS: DEXTROSE 5%-0.9% NS 1,000 ML 84 ML IV (11:42)
[2025-03-22] MEDS: INSULIN LISPRO 100 UNIT/ML 3ML VIAL SUBCUT ×3 (11:47→16:54)
[2025-03-22] MEDS: INSULIN LISPRO 100 UNIT/ML 3ML VIAL 8 UNIT SUBCUT (11:47)
--- NOTE | 2025-03-22 13:04 | PT.IPTN ---
Current Diagnoses Urinary tract infection, site not specified (03/18/25) Physical Therapy Treatment Note M2 PT-IP Current Condition Start: 03/20/25 17:40 Freq: NEEDED Status: Active Protocol: Document 03/20/25 17:41 [employer] (Rec: 03/20/25 17:53 [employer] [id number]) Physical Therapy Current Condition Current Condition Evaluation Date 03/20/25 Treatment Diagnosis generalized weakness, confusion M3 PT-IP Subjective Start: 03/20/25 17:40 Freq: NEEDED Status: Active Protocol: Document 03/22/25 12:22 MB (Rec: 03/22/25 13:03 MB Desktop) Subjective Physical Therapy Visit Type Type Treatment Note Visit Start Time 12:22 Visit Stop Time 12:58 Number of RETAIL OFFICE MANAGER Visits 0 Physical Therapy Visit Comments Patient Comments Pt does not make many verbalizations, moans a lot, two daughters in room and encourage pt to participate with PT. M4 PT-IP Mobility and Gait Start: 03/20/25 17:40 Freq: NEEDED Status: Active Protocol: Document 03/22/25 12:22 MB (Rec: 03/22/25 13:03 MB Desktop) PT-Bed Mobility Assessment Rolling Type of Rolling Bilateral Level of Assist Minimal Assistance,2 Person Assistance Supine to Sit Supine to Sit Contact Guard Assistance,1 Person Assistance,Head of Bed Elevated,Bedrails Sit to Supine Sit to Supine Contact Guard Assistance,1 Person Assistance,Bedrails Scooting Scooting to Edge of Contact Guard Assistance Bed PT-Transfer Assessment Comments Mobility Comments Sitting balance EOB with UE support on bed rail and CGA , dependent assistance to change brief and perform hygiene after bowel incontinence and assistance with pads for rolling, use of rails and a lot of encouragement, pt with moaning, occ becomes agitated, increased time for all bed mobility PT-Balance Assessment Sitting Balance and Reactions Static Sitting Good Balance Ability Dynamic Sitting Good Balance Ability M5 PT-IP Objective Assessments Start: 03/20/25 17:40 Freq: NEEDED Status: Active Protocol: Document 03/20/25 17:41 [employer] (Rec: 03/20/25 17:53 [employer] [id number]) Gross Range of Motion Lower Extremity ROM Assessment Within Functional Limits Strength Lower Extremity Strength Assessment Bilaterally Impaired Comments Strength Comments grossly 2+/5 M6 PT-IP Treatment Start: 03/20/25 17:40 Freq: NEEDED Status: Active Protocol: Document 03/20/25 17:41 [employer] (Rec: 03/20/25 17:53 [employer] [id number]) Physical Therapy Treatment Education Education Provided Safety Other Treatments Other Treatment exercises performed sitting at EOB: B ankle pumps x10, Performed B LAQs x10, B marching x10, B glute sets x10 M7 PT-IP Assessment and Plan Start: 03/20/25 17:40 Freq: NEEDED Status: Active Protocol: Document 03/22/25 12:22 MB (Rec: 03/22/25 13:03 MB Desktop) PT Summary Assessment and Plan Potential Rehabilitation Fair Potential Status of Condition Stable at Evaluation Summary Impairments Strength,Balance,Cognition,Bed Mobility,Transfers, Activity Tolerance Progress Towards Progressing Toward Goals Goals Assessment Summary Pt does not gait train at home and uses transfer pole for transfers to w/c. 2 daughter, PT and nsg encouragement to participate with bed mobility and sitting EOB today. Pt denies pain and reports nausea. Frequent moaning and occ agitation at end of treatment with changing brief. Pt makes progress with bed mobility. Goals Bed Mobility Goal Independent Transfer Goal Standby Assistance Frequency of Treatment Frequency Of Once a Day Treatment Treatment Plan Physical Therapy Bed Mobility Training,Transfer Training,Therapeutic Treatment Plan Exercise,Balance Retraining,Discharge Planning, Neuromuscular Re-ed Recommendations To Nursing Amount of Assist Mechanical Lift Needed Discharge Recommendations PT Discharge SNF Rehab Recommendations Transportation Needs Wheelchair/Cabulance,Stretcher/Ambulance at Discharge - PT assist x1-2
--- NOTE | 2025-03-22 13:08 | CM.DPC ---
DCP SNF Cont: Per MD, pt making slow improvements and continue to encourage increased po intake as pt has not eaten much or had much appetite but due to DM type 1 this is challenging to manage her insulin/blood sugars adequately. anticipates pt will be stable for d/c to SNF by tomorrow Mon 03/23. WILLIAM updated Adry at [facility] and she will continue to follow for likely d/c tomorrow Mon. FELTON Rodriguez
--- NOTE | 2025-03-22 16:10 | P.PN_ITS ---
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 Per the patient's who was at the bedside, the patient started to have increasing confusion today. The patient usually on is able to pivot and stand but is unable to do so today due to generalized weakness. There is no report of any fall. The patient also forgot to give her insulin today. Otherwise there is no report of any fever or chills, nausea, vomiting, diarrhea, chest pain or shortness of breath. In the emergency room, the patient was hemodynamically stable and was saturating well on room air. Labs were relatively benign except for glucose in the 300s. UA was positive for UTI. Chest x-ray was clear. CT scan of the head also shows no acute pathology. COVID test came back positive but again patient was saturating well on room air. The patient received IV fluid and IV ceftriaxone. Hospital course: 03/20: Blood pressure 163/64. Latest hemoglobin 9.5 on 03/19. Glucose ranging from 215 up to 298. At baseline she uses a wheelchair at home. The current plan is for her to go to [facility] in 1-3 days. She is quite disturbed by her poor sleep last night. 03/21: Not feeling well vomiting during the night not eating or drinking CBC and comprehensive metabolic is unremarkable patient is started on intravenous dextrose and insulin 03/22: No vomiting eating very small bites a little less ill appearing than before has been maintained on intravenous D5 and with insulin Review of systems: Generalized malaise nausea No chest pain palpitations shortness for breath new line No paresthesia paresis No urinary symptoms Physical exam: Chronically ill and acutely ill-appearing female very bradykinetic HEENT dry oropharynx Heart rate and rhythm regular lungs clear Abdomen nondistended Extremities no edema Moves all extremities Assessment and plan: 1. UTI. Present on admission and active. Cx: Klebsiella sensitive to all but ampicillin. Blood cx negative x2. * On IV ceftriaxone can deescalate to oral Omnicef 2. Septic encephalopathy with worsening confusion. * Slowly improving in small increments by the day 3. Positive for COVID infection. * Slowly improving clinically 4. insulin-dependent diabetes. * On intravenous dextrose with insulin to maintain * Can discontinue IV dextrose when is taking sufficient p.o. 5. Hypothyroidism. Stable. Resumed home Synthroid. 6. Generalized weakness. Treat as above and PT OT. 7. Hyperlipidemia. Stable. 8. Hypertension. Stable. PLAN: -continue IV ceftriaxone for Klebsiella UTI. -monitor blood pressure. Add amlodipine to losartan. -COVID isolation. Not hypoxic. -monitor breathing and occasional SaO2. -continue home insulin regimen. -PT alexx (she can usually stand and pivot into a wheelchair at home) She lives with her , he is the proxy decision maker. Time-Based Coding :: 35 minutes spent with patient and on the chart (including review of chart, obtaining history, exam, reviewing outside data, placing orders, documenting exam and treatment plan, and counseling patient) Exam Vital Signs (past 8 hours): - 03/22/25 08:24 03/22/25 08:24 03/22/25 08:54 Temperature Pulse Rate 60 60 69 Respiratory Rate Blood Pressure 170/69 H 170/69 H Pulse Oximetry Oxygen Delivery Method 03/22/25 09:00 03/22/25 12:00 03/22/25 16:01 Temperature 97.2 F L Pulse Rate 63 65 Respiratory Rate 16 Blood Pressure 150/61 H 127/61 Pulse Oximetry 94 Oxygen Delivery Method Room Air Oxygen Delivery Method Room Air Oxygen Flow Rate 1.5 Objective Labs 03/21/25 08:53 03/21/25 08:53 Labs: Laboratory Results - last 24 hr 03/21/25 03/21/25 03/21/25 16:32 17:53 21:46 POC Whole Bld Glucose 238 H 238 H 235 H 03/22/25 03/22/25 08:17 11:47 POC Whole Bld Glucose 322 H 335 H [facility] Medical History Acute UTI AVM (arteriovenous malformation) Social History household members: spouse Assessment & Plan Time-Based Coding :: [TOTAL MINUTES] spent with patient and on the chart (including review of chart, obtaining history, exam, reviewing outside data, placing orders, documenting exam and treatment plan, and counseling patient) on [DATE].
[2025-03-22] MEDS: CODEINE/ACETAMINOPHEN 30/300 TABLET 1 TAB PO (20:46)
[2025-03-22] MEDS: INSULIN GLARGINE 100 UNIT/ML 3ML PEN 12 UNIT SUBCUT (20:47)
[2025-03-22] MEDS: ATORVASTATIN 20 MG TABLET 40 MG PO (20:47)
[2025-03-23] VITALS (54 sets, daily range): BP systolic 139–192; BP diastolic 64–111; PULSE 60–80; RESP 9–24; TEMP 36.2–36.6; O2SAT 92–98
[2025-03-23] MEDS: DEXTROSE 5%-0.9% NS 1,000 ML 84 ML IV ×2 (00:09→13:39)
[2025-03-23] MEDS: INSULIN GLARGINE 100 UNIT/ML 3ML PEN 12 UNIT SUBCUT ×2 (08:33→22:15)
[2025-03-23] MEDS: ENOXAPARIN 40 MG/0.4 ML SYRINGE SUBCUT (10:28)
[2025-03-23] MEDS: LEVOTHYROXINE 88 MCG TABLET PO (10:28)
[2025-03-23] MEDS: ASPIRIN EC 81 MG TABLET PO (10:28)
[2025-03-23] MEDS: MULTIVITAMIN 1 TABLET 1 TAB PO (10:29)
[2025-03-23] MEDS: AMLODIPINE 5 MG TABLET PO (10:32)
[2025-03-23] MEDS: LOSARTAN 50 MG TABLET 100 MG PO (10:33)
--- NOTE | 2025-03-23 11:27 | DIET.PN1 ---
Dietary Progress Note Assessment: f/u Hospitalist wanting pt to eat more before d/c of D5 and discharge to SNF. Pt ate toast this morning and sipping on a fairlife chocolate protein drink from home. Somewhat agreeable to vanilla Ensure for lunch. Ht: 162.56 cm Wt: 73 kg BMI: 27.6 Last BM: 03/22/25 (03/22/25 12:54) MNA: 11 Juan Score: 17 Diet: 03/17/25 20:19 NPO Diet Diet Modifications: NPO Type: NPO except for Meds 03/18/25 Breakfast Carbohydrate Consistent Diet Diet Modifications: Carbohydrate level: Medium (3 CHO) Reflex DM orders: No Nutrition Percent Meal Consumed 75% 03/22/25 18:00 Percent Meal Consumed 10 03/21/25 18:00 Percent Meal Consumed 1 cup of chocolate pudding. 03/21/25 12:47 Labs: RBC 3.44 X10^6/uL (4.0-5.2) L 03/21/25 08:53 Hgb 11.0 g/dL (12.0-16.0) L 03/21/25 08:53 Hct 31.7 % (36-46) L 03/21/25 08:53 Creatinine 0.61 mg/dL (0.52-1.04) 03/21/25 08:53 Lactate 1.4 mmol/L (0.7-2.1) 03/17/25 21:25 Nutrition Diagnosis: Inadequate oral intakes r/t decrease appetite aeb <50% EER for last 3 days per recorded PO intakes Interventions: ONS+ with lunch Monitoring/Evaluations: PO intakes Electronically Signed by: Isabel Dixon 03/23/25 11:27 Clinical Dietitian [address] [address]
--- NOTE | 2025-03-23 12:26 | CM.DPNOTE ---
DCP note PERSONAL TRAINER reviewed EMR per provider, not yet cleared for dc. not eating enough. PERSONAL TRAINER updated family in room. appreciative of update. PERSONAL TRAINER updated Adry at , will plan for tomorrow time pending. P: dc tomorrow pending medical stability to , transport pending. CM team will continue to follow closely for DCP coordination FELTON Hernandez
[2025-03-23] MEDS: INSULIN LISPRO 100 UNIT/ML 3ML VIAL SUBCUT ×3 (12:40→17:25)
--- NOTE | 2025-03-23 14:22 | PT-IP ANOTE ---
PT reviews chart and speaks with nsg. Pt not going to d/c to SNF today d/t decreased oral intake. Checked on pt who is sleeping in bed. She starts moaning on awakening to PT voice. She does not communicate if she has been eating or if she is nauseated. She does report neck discomfort. Repositioned by OT with towel roll support and pillow under head and dropped HOB some and her face demonstrates less pain and she closes eyes. Con't PT efforts. Pt will be able to functionally progress better at SNF where she will have access to a transfer pole.
--- NOTE | 2025-03-23 14:27 | OT.IPNOTE ---
Attempted OT but pt refusing and able to reposition pt with neck roll and lower her head down a little. Notified nursing to check with pt for pain med.
[2025-03-23] MEDS: ACETAMINOPHEN 325 MG TABLET 650 MG PO (16:06)
--- NOTE | 2025-03-23 18:35 | P.PN_ITS ---
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 Per the patient's who was at the bedside, the patient started to have increasing confusion today. The patient usually on is able to pivot and stand but is unable to do so today due to generalized weakness. There is no report of any fall. The patient also forgot to give her insulin today. Otherwise there is no report of any fever or chills, nausea, vomiting, diarrhea, chest pain or shortness of breath. In the emergency room, the patient was hemodynamically stable and was saturating well on room air. Labs were relatively benign except for glucose in the 300s. UA was positive for UTI. Chest x-ray was clear. CT scan of the head also shows no acute pathology. COVID test came back positive but again patient was saturating well on room air. The patient received IV fluid and IV ceftriaxone. Hospital course: 03/20: Blood pressure 163/64. Latest hemoglobin 9.5 on 03/19. Glucose ranging from 215 up to 298. At baseline she uses a wheelchair at home. The current plan is for her to go to [facility] in 1-3 days. She is quite disturbed by her poor sleep last night. 03/21: Not feeling well vomiting during the night not eating or drinking CBC and comprehensive metabolic is unremarkable patient is started on intravenous dextrose and insulin 03/22: No vomiting eating very small bites a little less ill appearing than before has been maintained on intravenous D5 and with insulin 03/23: Patient is still not eating requiring continuing IV D5 Review of systems: Generalized malaise nausea No chest pain palpitations shortness for breath new line No paresthesia paresis No urinary symptoms Physical exam: Chronically ill and acutely ill-appearing female very bradykinetic HEENT dry oropharynx Heart rate and rhythm regular lungs clear Abdomen nondistended Extremities no edema Moves all extremities Assessment and plan: 1. UTI. Present on admission and active. Cx: Klebsiella sensitive to all but ampicillin. Blood cx negative x2. * On IV ceftriaxone can deescalate to oral Omnicef 2. Septic encephalopathy with worsening confusion. * Slowly improving in small increments by the day 3. Positive for COVID infection. * Slowly improving clinically 4. insulin-dependent diabetes. * On intravenous dextrose with insulin to maintain * Can discontinue IV dextrose when is taking sufficient p.o. 5. Hypothyroidism. Stable. Resumed home Synthroid. 6. Generalized weakness. Treat as above and PT OT. 7. Hyperlipidemia. Stable. 8. Hypertension. Stable. PLAN: -continue IV ceftriaxone for Klebsiella UTI. -monitor blood pressure. Add amlodipine to losartan. -COVID isolation. Not hypoxic. -monitor breathing and occasional SaO2. -continue home insulin regimen. -PT alexx (she can usually stand and pivot into a wheelchair at home) She lives with her , he is the proxy decision maker. Time-Based Coding :: 35 minutes spent with patient and on the chart (including review of chart, obtaining history, exam, reviewing outside data, placing orders, documenting exam and treatment plan, and counseling patient) Exam Vital Signs (past 8 hours): - 03/23/25 12:00 03/23/25 16:00 03/23/25 16:00 Temperature 97.5 F L Pulse Rate 77 74 61 Respiratory Rate 20 16 Blood Pressure 174/65 H 162/69 H 162/69 H Pulse Oximetry 97 Oxygen Flow Rate 94 Oxygen Delivery Method Room Air Oxygen Flow Rate 94 Objective Labs 03/21/25 08:53 03/21/25 08:53 Labs: Laboratory Results - last 24 hr 03/22/25 03/23/25 03/23/25 20:07 08:00 12:04 POC Whole Bld Glucose 166 H 107 H 205 H 03/23/25 17:20 POC Whole Bld Glucose 236 H [facility] Medical History Acute UTI AVM (arteriovenous malformation) Social History household members: spouse Assessment & Plan Time-Based Coding :: [TOTAL MINUTES] spent with patient and on the chart (including review of chart, obtaining history, exam, reviewing outside data, placing orders, documenting exam and treatment plan, and counseling patient) on [DATE].
[2025-03-23] MEDS: ATORVASTATIN 20 MG TABLET 40 MG PO (22:06)
[2025-03-24] VITALS (15 sets, daily range): BP systolic 171–181; BP diastolic 71–77; PULSE 60–87; RESP 8–51; TEMP 36.4; O2SAT 93–96
[2025-03-24] MEDS: DEXTROSE 5%-0.9% NS 1,000 ML 84 ML IV (01:13)
[2025-03-24] MEDS: LEVOTHYROXINE 88 MCG TABLET PO (05:48)
[2025-03-24] MEDS: INSULIN GLARGINE 100 UNIT/ML 3ML PEN 12 UNIT SUBCUT (10:10)
[2025-03-24] MEDS: INSULIN LISPRO 100 UNIT/ML 3ML VIAL SUBCUT (10:11)
[2025-03-24] MEDS: ENOXAPARIN 40 MG/0.4 ML SYRINGE SUBCUT (10:13)
[2025-03-24] MEDS: AMLODIPINE 5 MG TABLET PO (10:13)
[2025-03-24] MEDS: LOSARTAN 50 MG TABLET 100 MG PO (10:14)
[2025-03-24] MEDS: ASPIRIN EC 81 MG TABLET PO (10:14)
[2025-03-24] MEDS: MULTIVITAMIN 1 TABLET 1 TAB PO (10:14)
--- NOTE | 2025-03-24 12:23 | PC.NURSE ---
Patient was picked up by facility designee via WC. Patient hoyered to WC. IV dc'd intact. Patient's daughter Renetta came to bedside and assisted with picking up patient's belongings and her WC. Report called to Mare at [facility] [phone] with opportunity for questions and concerns.
--- NOTE | 2025-03-24 13:18 | CM.DPNOTE ---
DCP note TRUCK MECHANIC reviewed EMR per provider cleared to [place] today. Per Adry at can accept today transport 1130. TRUCK MECHANIC updated RN/gave RN number and LABOR STANDARDS DIRECTOR. TRUCK MECHANIC emailed PASRR/scripts/signed med list to Adry from . placed scripts/med list/PASRR in chart. dc summary pending. TRUCK MECHANIC updated spouse Remy ([phone]). in agreemnt with plan. Will send dc summary when available P: Dc to today 1130. CM team will continue to follow as needed FELTON Hernandez
--- NOTE | 2025-04-03 19:33 | P.DS_ITS ---
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 Per the patient's who was at the bedside, the patient started to have increasing confusion today. The patient usually on is able to pivot and stand but is unable to do so today due to generalized weakness. There is no report of any fall. The patient also forgot to give her insulin today. Otherwise there is no report of any fever or chills, nausea, vomiting, diarrhea, chest pain or shortness of breath. In the emergency room, the patient was hemodynamically stable and was saturating well on room air. Labs were relatively benign except for glucose in the 300s. UA was positive for UTI. Chest x-ray was clear. CT scan of the head also shows no acute pathology. COVID test came back positive but again patient was saturating well on room air. The patient received IV fluid and IV ceftriaxone. Hospital course: 03/20: Blood pressure 163/64. Latest hemoglobin 9.5 on 03/19. Glucose ranging from 215 up to 298. At baseline she uses a wheelchair at home. The current plan is for her to go to [facility] in 1-3 days. She is quite disturbed by her poor sleep last night. 03/21: Not feeling well vomiting during the night not eating or drinking CBC and comprehensive metabolic is unremarkable patient is started on intravenous dextrose and insulin 03/22: No vomiting eating very small bites a little less ill appearing than before has been maintained on intravenous D5 and with insulin 03/23: Patient is still not eating requiring continuing IV D5 03/24: Patient has no eating sufficient amounts of her diet we will discontinue IV D5 and transfer to intermediate Review of systems: Generalized malaise nausea No chest pain palpitations shortness for breath new line No paresthesia paresis No urinary symptoms Physical exam: Chronically ill and acutely ill-appearing female more animated HEENT dry oropharynx Heart rate and rhythm regular lungs clear Abdomen nondistended Extremities no edema Moves all extremities Assessment and plan: 1. UTI. Present on admission and active. Cx: Klebsiella sensitive to all but ampicillin. Blood cx negative x2. * On IV ceftriaxone can deescalate to oral Omnicef2. Septic encephalopathy markedly improved * Slowly improving in small increments by the day 3. Positive for COVID infection. * Slowly improving clinically4. insulin-dependent diabetes. * On intravenous dextrose with insulin to maintain * Can discontinue IV dextrose when is taking sufficient p.o. * * 5. Hypothyroidism. Stable. Resumed home Synthroid. 6. Generalized weakness. Treat as above and PT OT. 7. Hyperlipidemia. Stable. 8. Hypertension. Stable. PLAN: Discharge to intermediate Time-Based Coding :: 35 minutes spent with patient and on the chart (including review of chart, obtaining history, exam, reviewing outside data, placing orders, documenting exam and treatment plan, and counseling patient) Discharge Providers Provider Date of admission: 03/18/25 03:09 Discharge Date: 03/24/25 Primary care physician: Joanne Angelo MD Consults: 03/18/25 03:10 Consult to Occupational Therapy Evaluate & Treat Comment: Physician Instructions: Evaluate and treat Consult to Physical Therapy Evaluate & Treat Comment: Physician Instructions: Evaluate and Treat Discharge provider: Hernesto Shukla MD Exam Vital Signs (past 8 hours): Oxygen Delivery Method Room Air Oxygen Flow Rate 0 Objective Labs 03/21/25 08:53 03/21/25 08:53 [facility] Medical History Acute UTI AVM (arteriovenous malformation) Social History household members: spouse Discharge Plan Discharge Plan Patient Disposition: SNF Transfer to: [facility] Discharge orders & Medications Prescriptions: New ciprofloxacin HCl [Cipro] 250 mg tablet 250 mg PO BID Qty: 10 0RF Continued polyethylene glycol 3350 [Miralax] 17 gram powder in packet 13 g PO DAILY Patient Comments: Patient takes in the AM levothyroxine 88 mcg tablet 88 mcg PO DAILY atorvastatin 40 mg tablet 40 mg PO BEDTIME Patient Comments: [NO ORIGINAL SIG] losartan 25 mg tablet 25 mg PO DAILY insulin aspart U-100 [Novolog U-100 Insulin aspart] 100 unit/mL solution See Rx Instructions .ROUTE .COMPLEX Rx Instructions: see pt sliding scale; based on 20 gm Carb meals [id number]-epxjbbv-qtar-lutein Tablet 1 tab PO .morning aspirin 81 mg capsule 81 mg PO DAILY insulin glargine [Lantus U-100 Insulin] 100 unit/mL solution 5 unit SUBCUT BID Patient Comments: [NO ORIGINAL SIG] Rx Instructions: 5 units BID ergocalciferol (vitamin D2) 1,250 mcg (50,000 unit) capsule 1,250 mcg PO .QD Patient Comments: [NO ORIGINAL SIG] Follow up/Referrals: Joanne Angelo MD [Primary Care Provider, Internal Medicine] Visit Report/Discharge Packet Stand Alone Forms: Patient Portal/API Discharge Data Primary Care Provider: Joanne Angelo
== END 2025-03-24 11:50 | DRG 689 ==
LOC: ED 03-18 03:01 → AC 03-18 03:09 → ICU 03-18 03:25
PROVIDERS: Internal Medicine; Admitting Provider Internal Medicine; Emergency Provider Student in an Organized Health Care Education/Training Program; PCP Internal Medicine; Referring Provider Student in an Organized Health Care Education/Training Program; Visit Provider Internal Medicine
DX: N39.0 Urinary tract infection, site not specified (principal); G93.41 Metabolic encephalopathy; U07.1 COVID-19; I69.311 Memory deficit following cerebral infarction; E86.0 Dehydration; E03.9 Hypothyroidism, unspecified; E11.65 Type 2 diabetes mellitus with hyperglycemia; R53.1 Weakness; E78.5 Hyperlipidemia, unspecified; I10 Essential (primary) hypertension; B96.1 Klebsiella pneumoniae [K. pneumoniae] as the cause of diseases classified elsewhere; Z99.3 Dependence on wheelchair; Z79.890 Hormone replacement therapy; Z66 Do not resuscitate; Z79.4 Long term (current) use of insulin
CPT/HCPCS: 36415; 70450; 71045; 80048; 80053; 80305; 80320; 81001; 82550; 82805; 82962; 83605; 84145; 84484; 85025; 87040; 87077; 87086; 87186; 87633; 87797; 93005; 96360; 96361; 97110; 97162; 97166; 97530; 99284; J0360; J0696; J1650; J1815; J2405; J3010

== ENCOUNTER → 2025-05-19 08:34 | Outpatient (CLI) | payer MEDICARE, OTHER, SELFPAY ==
[2025-03-18 03:57] VITALS: BMI 27.6
[2025-05-19 09:29] LABS: Appearance Urine UA CLEAR; Bilirubin Urine UA NEGATIVE (NEGATIVE); Color Urine UA YELLOW; Glucose Urine UA NEGATIVE (Negative); Ketones Urine UA NEGATIVE (NEGATIVE); Leukocyte Esterase Urine UA 3+ (NEGATIVE); Nitrite Urine UA POSITIVE (Negative); Occult Blood Urine UA NEGATIVE (Negative); Protein Urine UA NEGATIVE (Negative); Specific Gravity Urine UA <=1.005 (1.000-1.035); Urobilinogen Urine UA 0.2 E.U./dL (0.2)
[2025-05-19 09:38] LABS: Hemoglobin A1C% w Est Avg Glu 7.2 % (4.0-6.0)
[2025-05-19 09:42] LABS: pH Urine UA 7.0 (4.5-8.0)
[2025-05-19 09:49] LABS: Alanine Aminotransferase 21 IU/L (<35); Albumin 4.1 g/dL (3.5-5.0); Albumin Globulin Ratio 1.1 (1.0-2.8); Alkaline Phosphatase 108 U/L (38-126); Blood Urea Nitrogen 30 mg/dL (7-17); Calcium 10.1 mg/dL (8.4-10.2); Carbon Dioxide 25 mmol/L (22-32); Chloride 100 mmol/L (98-107); Estimated Glomerular Filt Rate > 60 mL/min (>60); Globulin 3.7 g/dL (1.7-4.1); Glucose 142 mg/dL (70-99); HEMOLYSIS 33 (0-50); Potassium 4.7 mmol/L (3.4-5.1); Sodium 136 mmol/L (137-145); Total Protein 7.8 g/dL (6.3-8.2)
[2025-05-19 09:54] LABS: Culture Indicated Urine Specimen Cultured
[2025-05-19 09:55] LABS: Add Manual Diff / Slide Review NO; Hematocrit 34.9 % (36-46); Hemoglobin 11.7 g/dL (12.0-16.0); Lymphocytes Absolute Auto 3500 /uL (1100-4500); Mean Corpuscular HGB Conc 33.5 % (30-36); Mean Corpuscular Hemoglobin 31.0 PG (26-34); Mean Corpuscular Volume 92.4 fL (80-100); Platelet Count 234 X10^3/uL (150-400)
[2025-05-19 10:01] LABS: Total Iron Binding Capacity 248 ug/dL (265-497)
[2025-05-19 10:06] LABS: Free T4, Direct Thyroxine 1.57 ng/dL (0.78-2.19)
[2025-05-19 10:20] LABS: Thyroid Stimulating Hormone 4.47 uIU/mL (0.47-4.68)
[2025-05-19 10:23] LABS: Ferritin 131 ng/mL (11-264)
== END ==
PROVIDERS: PCP Internal Medicine; Referring Provider Internal Medicine; Visit Provider Internal Medicine Endocrinology, Diabetes & Metabolism
DX: D64.9 Anemia, unspecified (principal); E10.8 Type 1 diabetes mellitus with unspecified complications; B96.89 Other specified bacterial agents as the cause of diseases classified elsewhere; E03.4 Atrophy of thyroid (acquired); N39.0 Urinary tract infection, site not specified; R41.89 Other symptoms and signs involving cognitive functions and awareness
CPT/HCPCS: 36415; 80053; 81001; 82728; 83036; 83550; 84439; 84443; 85025; 87077; 87086; 87186

== ENCOUNTER → 2025-08-24 16:12 | Outpatient (CLI) | payer MEDICARE, OTHER, SELFPAY ==
[2025-03-18 03:57] VITALS: BMI 27.6
[2025-08-24 16:48] LABS: Appearance Urine UA CLEAR; Bilirubin Urine UA NEGATIVE (NEGATIVE); Color Urine UA YELLOW; Glucose Urine UA NEGATIVE (Negative); Ketones Urine UA NEGATIVE (NEGATIVE); Leukocyte Esterase Urine UA 2+ (NEGATIVE); Nitrite Urine UA NEGATIVE (Negative); Occult Blood Urine UA 1+ (Negative); Protein Urine UA NEGATIVE (Negative); Specific Gravity Urine UA <=1.005 (1.000-1.035); Urobilinogen Urine UA 0.2 E.U./dL (0.2)
[2025-08-24 16:51] LABS: pH Urine UA 7.0 (4.5-8.0)
[2025-08-24 17:05] LABS: Culture Indicated Urine Specimen Cultured
== END ==
PROVIDERS: PCP Internal Medicine; Referring Provider Physician Assistant Medical; Visit Provider Physician Assistant Medical
DX: R31.0 Gross hematuria (principal)
CPT/HCPCS: 81001; 87086